=== PATIENT | male | born 1950 | race Caucasian/White ===

== ENCOUNTER 2016-12-15 09:19 | Inpatient (IN) | payer MEDICARE ==
--- NOTE | 2016-12-15 09:39 | ED Physician Documentation ---
PD HPI URI - Stated complaint Stated Complaint: COUGH/DIFFICULTY BREATHING - Chief complaint Chief Complaint: Resp - History obtained from History obtained from: Patient - History of Present Illness Timing - onset: How many days ago (5-6) Timing duration: Days Timing details: Gradual onset, Still present Associated symptoms: Chills, Nasal congestion, Productive cough, Dyspnea, Bilateral edema (chronic). No: Sore throat, Hemoptysis, Chest pain Contributing factors: COPD / asthma. No: Sick contact, Travel, Immunocompromised Improves by: Rest Worsened by: Activity, Position (worse lying flat) Similar symptoms before: Has not had sx before Recently seen: Clinic (seen clinic this morning and referred to ED due to low sats in 80s%.) Review of Systems Constitutional: reports: Fever, Chills Nose: reports: Rhinorrhea / runny nose, Congestion Throat: denies: Sore throat Cardiac: denies: Chest pain / pressure, Palpitations Respiratory: reports: Dyspnea, Cough, Wheezing GI: denies: Abdominal Pain, Nausea, Vomiting, Diarrhea Skin: denies: Rash, Lesions Musculoskeletal: reports: Extremity swelling (chronic in both legs) PD PAST MEDICAL HISTORY - Past Medical History Cardiovascular: None Respiratory: COPD (he had been on theophylline and inhaler in the past, and was smoker. No current treatments nor regular wheezing. ) Neuro: None Endocrine/Autoimmune: None - Present Medications Home Medications: Ambulatory Orders Medication Instructions Recorded Confirmed Aspirin 81 mg DAILY 12/15/16 12/15/16 Gabapentin 600 mg QID 12/15/16 12/15/16 Insulin Glargine [Lantus] 22 units QPM 12/15/16 12/15/16 Lisinopril 10 mg DAILY 12/15/16 12/15/16 Meloxicam 15 mg DAILY 12/15/16 12/15/16 Methadone 10 mg PO BID 12/15/16 12/15/16 metFORMIN [Glucophage] 1,000 mg BID 12/15/16 12/15/16 - Allergies Allergies/Adverse Reactions: Allergies Allergy/AdvReac Type Severity Reaction Status Date / Time No Known Drug Allergies Allergy Verified 12/15/16 10:36 PD ED PE NORMAL - Vitals Vital signs reviewed: Yes - General General: Alert and oriented X 3, Well developed/nourished - HEENT HEENT: Ears normal, Pharynx benign - Neck Neck: Supple, no meningeal sign, No adenopathy - Cardiac Cardiac: RRR (tachycardic), No murmur - Respiratory Respiratory: No respiratory distress. No: Clear bilaterally (wheezing diffusely , coarse sounds right base particularly. ) - Abdomen Abdomen: Soft, Non tender - Male Male : Deferred - Rectal Rectal: Deferred - Back Back: No CVA TTP - Derm Derm: Normal color, Warm and dry - Extremities Extremities: No deformity, No tenderness to palpate, No calf tenderness / cord, Other (3+ edema in both legs up to lower thighs. No calf tenderness. ) - Neuro Neuro: Alert and oriented X 3, No motor deficit, Normal speech - Psych Psych: Normal mood, Normal affect Results - Vitals Vitals: Vital Signs - 24 hr 12/15/16 12/15/16 12/15/16 09:22 09:40 10:33 Temperature 36.6 C Heart Rate 120 H 118 H 115 H Respiratory 28 H 22 Rate Blood Pressure 133/76 H 115/75 O2 Saturation 77 L 95 92 12/15/16 12/15/16 10:40 11:12 Temperature Heart Rate 112 H 113 H Respiratory 14 22 Rate Blood Pressure 125/61 O2 Saturation 96 Oxygen O2 Source nebulizer Oxygen Flow Rate 6 - Labs Labs: Laboratory Tests 12/15/16 12/15/16 12/15/16 09:40 09:40 09:40 WBC 17.3 H RBC 5.21 Hgb 14.7 Hct 45.5 MCV 87.3 MCH 28.2 MCHC 32.3 RDW 14.8 Plt Count 414 MPV 8.2 Neut # 13.4 H Lymph # 1.9 Tama # 1.7 H Eos # 0.1 Baso # 0.2 H Absolute Nucleated RBC 0.01 Band Neuts % (Manual) Not Reportable Nucleated RBCs 0.1 Differential Comment MANUAL=AUTO DIFF RBC Morph Micro Appear 1+ POLYCHROMASIA Sodium 133 L Potassium 3.9 Chloride 93 L Carbon Dioxide 31 Anion Gap 9.0 BUN 13 Creatinine 0.9 Estimated GFR (MDRD) 85 L Glucose 138 H Glycated Hemoglobin Estim Average Glucose Lactic Acid Calcium 8.6 Magnesium 1.8 Total Bilirubin 1.1 H AST 20 ALT 20 Alkaline Phosphatase 75 B-Natriuretic Peptide 51 Total Protein 7.1 Albumin 3.3 Globulin 3.8 Albumin/Globulin Ratio 0.9 L Lipase 21 L 12/15/16 12/15/16 12/15/16 09:40 09:40 10:15 WBC RBC Hgb Hct MCV MCH MCHC RDW Plt Count MPV Neut # Lymph # Tama # Eos # Baso # Absolute Nucleated RBC Band Neuts % (Manual) Nucleated RBCs Differential Comment RBC Morph Micro Appear Sodium Potassium Chloride Carbon Dioxide Anion Gap BUN Creatinine Estimated GFR (MDRD) Glucose Glycated Hemoglobin 6.7 H 6.9 H Estim Average Glucose 146 H 151 H Lactic Acid 1.2 Calcium Magnesium Total Bilirubin AST ALT Alkaline Phosphatase B-Natriuretic Peptide Total Protein Albumin Globulin Albumin/Globulin Ratio Lipase PD MEDICAL DECISION MAKING - ED course Complexity details: reviewed results, considered differential (seems likely pneumonia with wheezing, dyspnea, productive cough. Breathing improved with nebs. Sats above 92% on NC. Does not appear at risk of resp failure. Does not appear to be CHF. ), d/w patient, d/w software developer consultant (Dr. Moore, hospitalist) Departure - Departure Disposition: 66 [facility] DC/Xfer Clinical Impression: Hypoxemia Dyspnea Qualifiers: Dyspnea type: shortness of breath Qualified Code(s): R06.02 - Shortness of breath Pneumonia Qualifiers: Pneumonia type: due to unspecified organism Laterality: right Lung location: lower lobe of lung Qualified Code(s): J18.1 - Lobar pneumonia, unspecified organism Condition: Stable Discharge Date/Time: 12/15/16 12:27
[2016-12-15 10:08] LABS: BASOPHILS # (AUTO) 0.2 10^3/uL (0.0-0.1); EOSINOPHILS # (AUTO) 0.1 10^3/uL (0.0-0.7); EOSINOPHILS % (AUTO) 0.9 %; HCT - HEMATOCRIT 45.5 % (42.0-52.0); HGB - HEMOGLOBIN 14.7 g/dL (14.0-18.0); LYMPHOCYTES # (AUTO) 1.9 10^3/uL (1.5-3.5); LYMPHOCYTES % (AUTO) 10.9 %; MEAN CORPUSCULAR HEMOGLOBIN 28.2 pg (27.0-31.0); MEAN CORPUSCULAR HGB CONC 32.3 g/dL (32.0-36.0); MEAN CORPUSCULAR VOLUME 87.3 fL (80.0-94.0); MEAN PLATELET VOLUME 8.2 fL (7.4-11.4); MONOCYTES # (AUTO) 1.7 10^3/uL (0.0-1.0); MONOCYTES % (AUTO) 9.8 %; NEUTROPHILS # (AUTO) 13.4 10^3/uL (1.5-6.6); NEUTROPHILS % (AUTO) 77.4 %; NUCLEATED RED BLOOD CELLS AUTO 0.1 /100WBC; RED BLOOD COUNT 5.21 10^6/uL (4.70-6.10); RED CELL DISTRIBUTION WIDTH 14.8 % (12.0-15.0); UNCORRECTED WHITE BLOOD COUNT 17.3 x10^3/uL; WHITE BLOOD COUNT 17.3 x10^3/uL (4.8-10.8)
[2016-12-15 10:18] LABS: ALBUMIN/GLOBULIN RATIO 0.9 (1.0-2.2); BILIRUBIN,TOTAL 1.1 mg/dL (0.2-1.0); CALCIUM 8.6 mg/dL (8.5-10.3); CREATININE 0.9 mg/dL (0.6-1.2); MAGNESIUM 1.8 mg/dL (1.7-2.8); POTASSIUM 3.9 mmol/L (3.5-5.0); TOTAL PROTEIN 7.1 g/dL (6.7-8.2)
[2016-12-15] MEDS ORDERED: LEVALBUTEROL 1.25 MG INH STA ×2 (10:26→10:57)
[2016-12-15] MEDS ORDERED: LEVALBUTEROL 1.25 MG INH ONE ×2 (10:30→11:03)
[2016-12-15] MEDS ORDERED: SODIUM CHLORIDE INHALATION 3 ML NEB ONE ×2 (10:30→11:03)
[2016-12-15 10:38] LABS: NP AUTO DIFFERENTIAL? NO; NP MAN DIFFERENTIAL? YES
[2016-12-15 10:40] LABS: HEMOGLOBIN A1C 0.78 g/dL
--- NOTE | 2016-12-15 10:47 | XRAY Preliminary Report ---
Exam: XR Chest 1 View IMPRESSION: Lower lungs partially obscured by abdominal pannus. Mild increase in density lower lungs may in part be artifact from the overlying soft tissues, differe ntial also includes mild atelectasis and developing pneumonia. Otherwise within normal limits. [facility] SITE ID: [id number]
--- NOTE | 2016-12-15 10:50 | XRAY Report ---
EXAM: CHEST RADIOGRAPHY ONE VIEW EXAM DATE: 12/15/2016. CLINICAL HISTORY: Dyspnea. Cough. COMPARISON: None. TECHNIQUE: AP upright portable chest at 1026. FINDINGS: Lower lungs partially obscured by abdominal pannus. Lungs/Pleura: Normal vasculature. Mild hazy increase in density of the lung bases. Mid and upper lung s are clear. No pleural fluid or pneumothorax. Mediastinum: Cardiac and mediastinal contours normal for the technique and patient body habitus. Bones: No acute abnormality visible. IMPRESSION: Lower lungs partially obscured by abdominal pannus. Mild increase in density lower lungs may in part be artifact from the overlying soft tissues, differe ntial also includes mild atelectasis and developing pneumonia. Otherwise within normal limits. [facility] Referring Provider Line: [phone] SITE ID: [id number]
[2016-12-15] MEDS ORDERED: AZITHROMYCIN INJ 500 MG in SODIUM CHLORIDE 0.9% 250 ML IV STA (10:57)
[2016-12-15] MEDS ORDERED: cefTRIAXone 1 GM in SODIUM CHLORIDE 0.9% MINIBAG 100 ML IV STA (10:57)
[2016-12-15] MEDS ORDERED: SODIUM CHLORIDE 0.9% MINIBAG 100 ML IV ONE (11:00)
[2016-12-15] MEDS ORDERED: cefTRIAXone 1 GM VIAL ONE (11:00)
[2016-12-15] MEDS ORDERED: ONDANSETRON ODT 4 MG TABLET TL PRN (11:32)
[2016-12-15] MEDS ORDERED: ACETAMINOPHEN 325 MG TABLET PO PRN (11:32)
[2016-12-15] MEDS ORDERED: ONDANSETRON 4 MG/2 ML VIAL IVP PRN (11:32)
[2016-12-15] MEDS ORDERED: SODIUM CHLORIDE 0.9% 250 ML IV ONE (11:32)
[2016-12-15] MEDS ORDERED: SODIUM CHLORIDE FLUSH 0.9% 10 ML SYRINGE IVP PRN (11:32)
[2016-12-15] MEDS ORDERED: IPRATROPIUM 0.2 MG/ML NEB INH PRN (11:35)
[2016-12-15] MEDS ORDERED: SODIUM CHLORIDE INHALATION 3 ML NEB INH PRN (12:30)
[2016-12-15 12:31] LABS: HEMOGLOBIN A1C 0.81 g/dL
[2016-12-15] MEDS ORDERED: GABAPENTIN 300 MG CAPSULE PO SCH (13:00)
[2016-12-15] MEDS: INSULIN ASPART 300 UNIT/3 ML PEN SUBQ SCH ×3 (13:12→20:59)
[2016-12-15] MEDS: SODIUM CHLORIDE 0.9% 1,000 ML IV SCH ×2 (13:21→23:49)
[2016-12-15] MEDS: SODIUM CHLORIDE FLUSH 0.9% 10 ML SYRINGE IVP SCH ×2 (13:27→21:01)
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
[2016-12-15] MEDS: SACCHAROMYCES BOULARDII 250 MG CAPSULE PO SCH (17:32)
[2016-12-15] MEDS: METHADONE 5 MG TABLET PO SCH (20:58)
[2016-12-15] MEDS: GABAPENTIN 400 MG CAPSULE PO SCH (20:59)
[2016-12-15] MEDS: INSULIN GLARGINE 300 UNIT/3 ML PEN SUBQ SCH (21:00)
[2016-12-15] MEDS: guaiFENesin/CODEINE 5 ML UDC PO PRN (23:49)
[2016-12-16 06:17] LABS: CALCIUM 8.6 mg/dL (8.5-10.3); CREATININE 0.8 mg/dL (0.6-1.2); POTASSIUM 3.8 mmol/L (3.5-5.0)
[2016-12-16 06:18] LABS: BASOPHILS # (AUTO) 0.2 10^3/uL (0.0-0.1); BASOPHILS % (AUTO) 1.2 %; EOSINOPHILS # (AUTO) 0.4 10^3/uL (0.0-0.7); HCT - HEMATOCRIT 46.2 % (42.0-52.0); HGB - HEMOGLOBIN 14.4 g/dL (14.0-18.0); LYMPHOCYTES # (AUTO) 1.8 10^3/uL (1.5-3.5); LYMPHOCYTES % (AUTO) 13.4 %; MEAN CORPUSCULAR HGB CONC 31.2 g/dL (32.0-36.0); MEAN CORPUSCULAR VOLUME 89.5 fL (80.0-94.0); MEAN PLATELET VOLUME 7.9 fL (7.4-11.4); MONOCYTES # (AUTO) 1.4 10^3/uL (0.0-1.0); MONOCYTES % (AUTO) 10.2 %; NEUTROPHILS # (AUTO) 9.7 10^3/uL (1.5-6.6); NEUTROPHILS % (AUTO) 72.2 %; RED BLOOD COUNT 5.16 10^6/uL (4.70-6.10); RED CELL DISTRIBUTION WIDTH 14.5 % (12.0-15.0); UNCORRECTED WHITE BLOOD COUNT 13.4 x10^3/uL; WHITE BLOOD COUNT 13.4 x10^3/uL (4.8-10.8)
[2016-12-16] MEDS: cefTRIAXone 2 GM in SODIUM CHLORIDE 0.9% MINIBAG 100 ML IV SCH (08:26)
[2016-12-16] MEDS: POLYETHYLENE GLYCOL 3350 17 GM PACKET PO SCH (08:28)
[2016-12-16] MEDS: SACCHAROMYCES BOULARDII 250 MG CAPSULE PO SCH ×2 (08:28→16:11)
[2016-12-16] MEDS: ASPIRIN CHEW 81 MG TABLET PO SCH (08:28)
[2016-12-16] MEDS: GABAPENTIN 400 MG CAPSULE PO SCH ×2 (08:28→21:06)
[2016-12-16] MEDS: METHADONE 5 MG TABLET PO SCH ×2 (08:29→21:07)
[2016-12-16] MEDS: SODIUM CHLORIDE FLUSH 0.9% 10 ML SYRINGE IVP SCH ×3 (08:30→21:07)
[2016-12-16] MEDS: INSULIN ASPART 300 UNIT/3 ML PEN SUBQ SCH ×4 (08:30→20:54)
[2016-12-16] MEDS: LISINOPRIL 5 MG TABLET PO SCH (08:36)
[2016-12-16] MEDS: guaiFENesin/CODEINE 5 ML UDC PO PRN ×2 (11:34→22:11)
[2016-12-16] MEDS: DOCUSATE SODIUM 250 MG CAPSULE PO SCH (14:35)
[2016-12-16] MEDS: SENNA 8.6 MG TABLET PO SCH (14:36)
[2016-12-16] MEDS: HYDROcod/ACETAM 5/325 MG TABLET PO PRN ×2 (16:11→23:54)
[2016-12-16] MEDS: INSULIN GLARGINE 300 UNIT/3 ML PEN SUBQ SCH (21:07)
[2016-12-17] MEDS: SODIUM CHLORIDE FLUSH 0.9% 10 ML SYRINGE IVP SCH ×2 (07:28→07:44)
[2016-12-17] MEDS: INSULIN ASPART 300 UNIT/3 ML PEN SUBQ SCH ×4 (07:41→21:08)
[2016-12-17] MEDS: GABAPENTIN 400 MG CAPSULE PO SCH ×2 (07:42→20:13)
[2016-12-17] MEDS: METHADONE 5 MG TABLET PO SCH ×2 (07:42→20:13)
[2016-12-17] MEDS: LISINOPRIL 5 MG TABLET PO SCH (07:42)
[2016-12-17] MEDS: ASPIRIN CHEW 81 MG TABLET PO SCH (07:42)
[2016-12-17] MEDS: DOCUSATE SODIUM 250 MG CAPSULE PO SCH (07:43)
[2016-12-17] MEDS: cefTRIAXone 2 GM in SODIUM CHLORIDE 0.9% MINIBAG 100 ML IV SCH (07:43)
[2016-12-17] MEDS: SACCHAROMYCES BOULARDII 250 MG CAPSULE PO SCH ×2 (07:43→16:44)
[2016-12-17] MEDS: POLYETHYLENE GLYCOL 3350 17 GM PACKET PO SCH (07:43)
[2016-12-17] MEDS: SENNA 8.6 MG TABLET PO SCH (07:43)
[2016-12-17] MEDS: guaiFENesin/CODEINE 5 ML UDC PO PRN (07:45)
[2016-12-17] MEDS: NYSTATIN POWDER 15 GM TOP SCH ×2 (10:33→20:19)
[2016-12-17] MEDS: NYSTATIN CREAM 15 GM TUBE TOP SCH ×2 (10:33→20:19)
[2016-12-17] MEDS: LEVALBUTEROL 1.25 MG INH PRN (11:26)
--- NOTE | 2016-12-17 12:59 | PROVIDER PROGRESS NOTE ---
Subjective - Prog Note Date Prog Note Date: 12/17/16 Prog Note Time: 09:00 - Subjective Pt reports feeling: No change Subjective: Patient sitting up in bed, his face is johnathon and flushed, reports he just had to lay flat to reposition and this is usual, mild tachypnea but he denies overt SOB right now, WAS SOB when flat. He complains of persistent cough with thick yellow sputum, he produced a glob while I was at bedside. He is on 6l O2 and RN says unable to wean at this time. RN reports redness/ yeast under the bilateral axilla, redness under the pannus and she is placing inter-dry there. Current Medications - Current Medications Current Medications: Active Medications Acetaminophen (Tylenol) 650 mg PO Q4HR PRN PRN Reason: Pain 1 to 4 Acetaminophen/Hydrocodone Bitart ([place] 5/325) 1 tab PO Q4HR PRN PRN Reason: Pain 5 to 7 Last Admin: 12/16/16 23:54 Dose: 1 tab Aspirin ([place] Aspirin) 81 mg PO DAILY [facility] Last Admin: 12/17/16 07:42 Dose: 81 mg Docusate Sodium (Colace 250mg Capsule) 250 - 500 mg PO DAILY [facility] Last Admin: 12/17/16 07:43 Dose: 250 mg Gabapentin (Neurontin) 1,200 mg PO BID [facility] Last Admin: 12/17/16 07:42 Dose: 1,200 mg Guaifenesin/Codeine Phosphate (Robitussin Ac) 10 ml PO Q6HR PRN PRN Reason: Cough Last Admin: 12/17/16 07:45 Dose: 10 ml Ceftriaxone Sodium 2 gm/ (Sodium Chloride) 100 mls @ 200 mls/hr IV DAILY [facility] Last Admin: 12/17/16 07:43 Dose: 200 mls/hr Levofloxacin (Levaquin 750 Mg/150 Ml) 150 mls @ 100 mls/hr IV Q24H [facility] Last Admin: 12/16/16 11:31 Dose: 100 mls/hr Ibuprofen (Motrin) 400 mg PO Q4HR PRN PRN Reason: Pain 1 to 4 Insulin Aspart (Novolog) 1 - 9 unit SUBQ 0800,1200,1700,2100 NUVIA PRN Reason: Protocol Last Admin: 12/17/16 07:41 Dose: Not Given Insulin Glargine (Lantus Solostar) 22 unit SUBQ QPM [facility] Last Admin: 12/16/16 21:07 Dose: 22 unit Ipratropium [place] (Atrovent) 0.5 mg INH Q4HR PRN PRN Reason: Wheezing Last Admin: 12/17/16 11:25 Dose: 0.5 mg Levalbuterol HCl (Xopenex) 1.25 mg INH Q4HR PRN PRN Reason: Wheezing Last Admin: 12/17/16 11:26 Dose: 1.25 mg Lisinopril (Zestril) 10 mg PO DAILY [facility] Last Admin: 12/17/16 07:42 Dose: 10 mg Methadone HCl () 10 mg PO BID [facility] Last Admin: 12/17/16 07:42 Dose: 10 mg Nystatin (Mycostatin Cream) 1 applic TOP BID [facility] Last Admin: 12/17/16 10:33 Dose: 1 applic Nystatin (Nystop) 1 applic TOP BID [facility] Last Admin: 12/17/16 10:33 Dose: 1 applic Ondansetron HCl (Zofran Odt) 4 mg TL Q6HR PRN PRN Reason: Nausea / Vomiting Ondansetron HCl (Zofran Inj) 4 mg IVP Q6HR PRN PRN Reason: Nausea / Vomiting Polyethylene Glycol (Miralax) 17 gm PO DAILY [facility] Last Admin: 12/17/16 07:43 Dose: 17 gm Saccharomyces Boulardii (Florastor) 250 mg PO BIDWM [facility] Last Admin: 12/17/16 07:43 Dose: 250 mg Senna (Senokot) 8.6 - 17.2 mg PO DAILY [facility] Last Admin: 12/17/16 07:43 Dose: 8.6 mg Sodium Chloride (Normal Saline Flush 0.9%) 10 ml IVP PRN PRN PRN Reason: NEEDED PER PROVIDER ORDERS Sodium Chloride (Normal Saline Flush 0.9%) 10 ml IVP Q8HR [facility] Last Admin: 12/17/16 07:44 Dose: 10 ml Sodium Chloride (Normal Saline) 3 ml INH Q4HR PRN PRN Reason: XOPENEX NEB [place] Aspirin 81 mg DAILY 12/15/16 Gabapentin 600 mg QID 12/15/16 Insulin Glargine [Lantus] 22 units QPM 12/15/16 Lisinopril 10 mg DAILY 12/15/16 Meloxicam 15 mg DAILY 12/15/16 Methadone 10 mg PO BID 12/15/16 metFORMIN [Glucophage] 1,000 mg BID 12/15/16 Objective - Vital Signs/Intake & Output Reviewed Vital Signs: Yes Vital Signs: Vital Signs x48h Temp Pulse Pulse Resp BP Pulse Ox 12/17/16 11:25 99 18 12/17/16 09:26 37.4 C 98 18 129/71 94 Intake & Output: Intake & Output 12/14/16 12/15/16 12/16/16 12/17/16 23:59 23:59 23:59 23:59 Intake Total 1893 2705 300 Balance 1893 2705 300 - Objective General Appearance: positive: Alert, Mild distress Eyes Bilateral: positive: Normal inspection ENT: positive: No signs of dehydration Neck: positive: Other (thick) Respiratory: positive: Chest non-tender, Other (increased resp rate and effort, no accessory muscle use, holding his arms up on trapeze for comfort of breathing , breath sounds equal, diminished, no wheezing or rhonchi) Cardiovascular: positive: Regular rate & rhythm (distant heart sounds (likely from body habitus)). negative: Tachycardia Peripheral Pulses: 1+ Dorsalis pedis (R), 1+ Dorsalis pedis (L), 2+ Radial (R), 2+ Radial (L) Abdomen: positive: Non-tender (morbidly obese and his pannus clearly covers the groin and upper thighs. Hypoactive bowel sounds, soft.) Skin: positive: Warm, Dry, Other (Johnathon complexion and red in the face now. Bilateral axilla with yeast, under the abdominal pannus there is redness/yeast dermatitis, no open wounds or cellulitis.) Extremities: positive: Non-tender. negative: Full ROM (limited by body habitus) Neurologic/Psychiatric: positive: Oriented x3, Motor nml, Sensation nml, Mood/ affect nml - Lab Results Fish Bones: 12/16/16 05:47 12/16/16 05:47 Assessment/Plan - Problem List (1) CAP (community acquired pneumonia) Impression: Hx of 3+ weeks of persistent cough with increased sputum following a URI/head cold. Saw PCP in office, hypoxic to 80s and sent to ER. CXR with ?atelectasis vs infiltrate but with WBC 17k and hypoxia + tachycardia admitted and treated for CAP with empiric therapy. No significant improvement since admission in symptoms. Sputum cx with normal resp chevy and blood cx negative thus far. WBC down to 13 from 17 (neutrophil predominant). No evidence of heart failure note with BNP 51. Elevated white count and URI symptoms make it more liekly CAP than a PE. -Continue rocephin + levaquin -Add mucinex BID, may have robitussin prn -aDD Duonebs QID scheduled -Continue xopenex q4hr prn -Pulm toilet q4hr -O2 as neede dto keep sats >92%, wean as tolerated (2) COPD with exacerbation Impression: 60yr pack history, quit in 1995. No inhalers or oxygen at home. Has chronic daily cough that is productive at [employer], now with increased amount + SOB + hypoxia and tachypnea. Likely due to CAP. -Will not start nebs as he is not wheezy +recommend outpt PFTs once at baseline (3) Acute respiratory failure with hypoxia Impression: Significant SOB and hypoxia (initially to 70's on RA). Very symptomatic when flat or with exertion. Not much improvement yet. -As above -Wean O2 as tolerated +recommend sleep study once at baseline (4) T2DM (type 2 diabetes mellitus) Impression: Hx fo T2DM and A1c 6.9. On lantus + metformin at home and gabapentin for neuropathy. -Continue lantus 22units qHS (may need to be increased if started on steroids ) -SSI achs -Carb controlled diet Qualifiers: Diabetes mellitus complication status: with neurologic complications Diabetes mellitus complication detail: with unspecified neuropathy Diabetes mellitus custodial insulin use: with custodial use Qualified Code(s): E11.40 - Type 2 diabetes mellitus with diabetic neuropathy, unspecified; Z79.4 - detention (current) use of insulin (5) HTN (hypertension) Impression: Hx of HTN, on lisinopril at home. ACEI could be contributing to chronic cough as well. Currently normotensive. -Continue lisinopril -Monitor BP routinely and titrate meds as needed (6) Chronic pain syndrome Impression: Hx of chronic back pain and is on meloxicam and methadone at home. Patient reports pain at baseline. -Continue methadone 10mg BID and [place] 1tab q4prn for breakthrough pain -Sub motrin prn for meloxicam -Bowel regimen: colace, miralax and senna daily (7) Yeast dermatitis Impression: Yeast dermatitis in the bilateral axilla and abdominal pannus, nystatin powder and cream available to staff software engineer. Interdry per RN to the pannus. -assess for improvement -Monitor for 2ndary infection -Keep clean and DRY DISCHARGE PLANNING: Due to response thus far, assume 3-4 more days until able to discharge. Lives alone, daughter as support. May need home O2 if unable to wean.
[2016-12-17] MEDS: guaiFENesin 600 MG TABLET PO SCH ×2 (14:39→20:13)
[2016-12-17] MEDS: IBUPROFEN 400 MG TABLET PO PRN (14:39)
[2016-12-17] MEDS: HYDROcod/ACETAM 5/325 MG TABLET PO PRN ×2 (18:48→23:38)
[2016-12-17] MEDS: INSULIN GLARGINE 300 UNIT/3 ML PEN SUBQ SCH (21:08)
[2016-12-17 23:07] LABS: MYCOPLASMA PNEUMONIAE AB IGG 0.52 U/L (<=0.09); MYCOPLASMA PNEUMONIAE AB IGM 0.05 U/L (<=0.76)
[2016-12-18] MEDS: guaiFENesin/CODEINE 5 ML UDC PO PRN ×2 (05:54→19:22)
[2016-12-18] MEDS: SODIUM CHLORIDE FLUSH 0.9% 10 ML SYRINGE IVP SCH ×3 (05:56→07:59)
[2016-12-18] MEDS: INSULIN ASPART 300 UNIT/3 ML PEN SUBQ SCH ×4 (07:55→20:37)
[2016-12-18] MEDS: ASPIRIN CHEW 81 MG TABLET PO SCH (07:56)
[2016-12-18] MEDS: cefTRIAXone 2 GM in SODIUM CHLORIDE 0.9% MINIBAG 100 ML IV SCH (07:56)
[2016-12-18] MEDS: SENNA 8.6 MG TABLET PO SCH (07:56)
[2016-12-18] MEDS: SACCHAROMYCES BOULARDII 250 MG CAPSULE PO SCH ×2 (07:56→17:22)
[2016-12-18] MEDS: GABAPENTIN 400 MG CAPSULE PO SCH ×2 (07:57→20:32)
[2016-12-18] MEDS: METHADONE 5 MG TABLET PO SCH ×2 (07:57→20:32)
[2016-12-18] MEDS: DOCUSATE SODIUM 250 MG CAPSULE PO SCH (07:57)
[2016-12-18] MEDS: POLYETHYLENE GLYCOL 3350 17 GM PACKET PO SCH (07:57)
[2016-12-18] MEDS: LISINOPRIL 5 MG TABLET PO SCH (07:57)
[2016-12-18] MEDS: guaiFENesin 600 MG TABLET PO SCH ×2 (07:58→20:32)
[2016-12-18] MEDS: NYSTATIN CREAM 15 GM TUBE TOP SCH ×2 (07:59→20:38)
[2016-12-18] MEDS: NYSTATIN POWDER 15 GM TOP SCH ×2 (07:59→20:38)
[2016-12-18 08:00] LABS: BASOPHILS # (AUTO) 0.1 10^3/uL (0.0-0.1); BASOPHILS % (AUTO) 0.9 %; EOSINOPHILS # (AUTO) 0.4 10^3/uL (0.0-0.7); HCT - HEMATOCRIT 44.8 % (42.0-52.0); HGB - HEMOGLOBIN 13.9 g/dL (14.0-18.0); LYMPHOCYTES # (AUTO) 1.5 10^3/uL (1.5-3.5); LYMPHOCYTES % (AUTO) 11.7 %; MEAN CORPUSCULAR HEMOGLOBIN 27.7 pg (27.0-31.0); MEAN CORPUSCULAR HGB CONC 31.1 g/dL (32.0-36.0); MEAN CORPUSCULAR VOLUME 89.3 fL (80.0-94.0); MEAN PLATELET VOLUME 7.2 fL (7.4-11.4); MONOCYTES # (AUTO) 0.8 10^3/uL (0.0-1.0); MONOCYTES % (AUTO) 6.8 %; NEUTROPHILS # (AUTO) 9.7 10^3/uL (1.5-6.6); NEUTROPHILS % (AUTO) 77.6 %; RED BLOOD COUNT 5.02 10^6/uL (4.70-6.10); RED CELL DISTRIBUTION WIDTH 14.9 % (12.0-15.0); UNCORRECTED WHITE BLOOD COUNT 12.5 x10^3/uL; WHITE BLOOD COUNT 12.5 x10^3/uL (4.8-10.8)
[2016-12-18] MEDS: IBUPROFEN 400 MG TABLET PO PRN (08:00)
[2016-12-18 08:06] LABS: CALCIUM 8.7 mg/dL (8.5-10.3); CREATININE 0.8 mg/dL (0.6-1.2); POTASSIUM 4.9 mmol/L (3.5-5.0)
--- NOTE | 2016-12-18 12:03 | PROVIDER PROGRESS NOTE ---
Subjective - Prog Note Date Prog Note Date: 12/18/16 Prog Note Time: 12:01 - Subjective Pt reports feeling: Improved Subjective: Patient reports minimal (but some) improvement in his breathing. RN was able to wean to 5l this AM. + cough with sputum, slightly easier to cough up. No fever or chills, no muscle aches. Eating well, no abdominal pain. No skin irritation and axilla are much improved. Current Medications - Current Medications Current Medications: Active Medications Acetaminophen (Tylenol) 650 mg PO Q4HR PRN PRN Reason: Pain 1 to 4 Acetaminophen/Hydrocodone Bitart ([place] 5/325) 1 tab PO Q4HR PRN PRN Reason: Pain 5 to 7 Last Admin: 12/17/16 23:38 Dose: 1 tab Aspirin ([place] Aspirin) 81 mg PO DAILY [facility] Last Admin: 12/18/16 07:56 Dose: 81 mg Docusate Sodium (Colace 250mg Capsule) 250 - 500 mg PO DAILY [facility] Last Admin: 12/18/16 07:57 Dose: 250 mg Gabapentin (Neurontin) 1,200 mg PO BID [facility] Last Admin: 12/18/16 07:57 Dose: 1,200 mg Guaifenesin (Mucinex) 600 mg PO BID [facility] Last Admin: 12/18/16 07:58 Dose: 600 mg Guaifenesin/Codeine Phosphate (Robitussin Ac) 10 ml PO Q6HR PRN PRN Reason: Cough Last Admin: 12/18/16 05:54 Dose: 10 ml Ceftriaxone Sodium 2 gm/ (Sodium Chloride) 100 mls @ 200 mls/hr IV DAILY [facility] Last Admin: 12/18/16 07:56 Dose: 200 mls/hr Levofloxacin (Levaquin 750 Mg/150 Ml) 150 mls @ 100 mls/hr IV Q24H [facility] Last Admin: 12/17/16 13:05 Dose: 100 mls/hr Ibuprofen (Motrin) 400 mg PO Q4HR PRN PRN Reason: Pain 1 to 4 Last Admin: 12/18/16 08:00 Dose: 400 mg Insulin Aspart (Novolog) 1 - 9 unit SUBQ 0800,1200,1700,2100 NUVIA PRN Reason: Protocol Last Admin: 12/18/16 07:55 Dose: 1 unit Insulin Glargine (Lantus Solostar) 22 unit SUBQ QPM [facility] Last Admin: 12/17/16 21:08 Dose: 22 unit Ipratropium [place] (Atrovent) 0.5 mg INH Q4HR PRN PRN Reason: Wheezing Last Admin: 12/17/16 11:25 Dose: 0.5 mg Levalbuterol HCl (Xopenex) 1.25 mg INH Q4HR PRN PRN Reason: Wheezing Last Admin: 12/17/16 11:26 Dose: 1.25 mg Lisinopril (Zestril) 10 mg PO DAILY [facility] Last Admin: 12/18/16 07:57 Dose: 10 mg Methadone HCl () 10 mg PO BID [facility] Last Admin: 12/18/16 07:57 Dose: 10 mg Nystatin (Mycostatin Cream) 1 applic TOP BID [facility] Last Admin: 12/18/16 07:59 Dose: 1 applic Nystatin (Nystop) 1 applic TOP BID [facility] Last Admin: 12/18/16 07:59 Dose: 1 applic Ondansetron HCl (Zofran Odt) 4 mg TL Q6HR PRN PRN Reason: Nausea / Vomiting Ondansetron HCl (Zofran Inj) 4 mg IVP Q6HR PRN PRN Reason: Nausea / Vomiting Polyethylene Glycol (Miralax) 17 gm PO DAILY [facility] Last Admin: 12/18/16 07:57 Dose: 17 gm Saccharomyces Boulardii (Florastor) 250 mg PO BIDWM [facility] Last Admin: 12/18/16 07:56 Dose: 250 mg Senna (Senokot) 8.6 - 17.2 mg PO DAILY [facility] Last Admin: 12/18/16 07:56 Dose: 8.6 mg Sodium Chloride (Normal Saline Flush 0.9%) 10 ml IVP PRN PRN PRN Reason: NEEDED PER PROVIDER ORDERS Sodium Chloride (Normal Saline Flush 0.9%) 10 ml IVP Q8HR [facility] Last Admin: 12/18/16 07:59 Dose: 10 ml Sodium Chloride (Normal Saline) 3 ml INH Q4HR PRN PRN Reason: XOPENEX NEB [place] Aspirin 81 mg DAILY 12/15/16 Gabapentin 600 mg QID 12/15/16 Insulin Glargine [Lantus] 22 units QPM 12/15/16 Lisinopril 10 mg DAILY 12/15/16 Meloxicam 15 mg DAILY 12/15/16 Methadone 10 mg PO BID 12/15/16 metFORMIN [Glucophage] 1,000 mg BID 12/15/16 Objective - Vital Signs/Intake & Output Reviewed Vital Signs: Yes Vital Signs: Vital Signs x48h Temp Pulse Pulse Resp BP Pulse Ox 12/18/16 09:44 36.9 C 105 H 20 118/63 92 12/18/16 08:00 100 20 Intake & Output: Intake & Output 12/15/16 12/16/16 12/17/16 12/19/16 23:59 23:59 23:59 00:59 Intake Total 1892 2705 1950 450 Balance 1892 2705 1950 450 - Objective General Appearance: positive: No acute distress, Alert Eyes Bilateral: positive: Normal inspection ENT: positive: No signs of dehydration Respiratory: positive: Chest non-tender. negative: Breath sounds nml ( dimisnihed bilaterally, no wheezes or rhonchi, coarse with cough) Cardiovascular: positive: Regular rate & rhythm, Tachycardia Peripheral Pulses: 2+ Radial (R), 2+ Radial (L), 2+ Dorsalis pedis (R), 2+ Dorsalis pedis (L) Abdomen: positive: Non-tender, Other (obese with large pannuse, active bowel sounds) Back: positive: Nml inspection Skin: positive: Warm, Dry, Skin rash (yeast dermatitis to bilat axilla and abdominal pannus - axilla improved) Extremities: positive: Pedal edema (+2, NICOLE hose off). negative: Calf tenderness, Joint swelling Neurologic/Psychiatric: positive: Oriented x3, Motor nml (limited by obesity), Sensation nml, Mood/affect nml - Lab Results Fish Bones: 12/18/16 07:40 12/18/16 07:40 Other Labs: Lab Results x24hrs 12/18/16 12/18/16 Range/Units 07:40 07:40 WBC 12.5 H (4.8-10.8) x10^3/uL RBC 5.02 (4.70-6.10) 10^6/uL Hgb 13.9 L (14.0-18.0) g/dL Hct 44.8 (42.0-52.0) % MCV 89.3 (80.0-94.0) fL MCH 27.7 (27.0-31.0) pg MCHC 31.1 L (32.0-36.0) g/dL RDW 14.9 (12.0-15.0) % Plt Count 410 (130-450) 10^3/uL MPV 7.2 L (7.4-11.4) fL Neut # 9.7 H (1.5-6.6) 10^3/uL Lymph # 1.5 (1.5-3.5) 10^3/uL [place] # 0.8 (0.0-1.0) 10^3/uL Eos # 0.4 (0.0-0.7) 10^3/uL Baso # 0.1 (0.0-0.1) 10^3/uL Absolute Nucleated RBC 0.00 x10^3/uL Nucleated RBCs 0.0 /100WBC Sodium 136 (135-145) mmol/L Potassium 4.9 (3.5-5.0) mmol/L Chloride 96 L (101-111) mmol/L Carbon Dioxide 35 H (21-32) mmol/L Anion Gap 5.0 L (6-13) BUN 12 (6-20) mg/dL Creatinine 0.8 (0.6-1.2) mg/dL Estimated GFR (MDRD) 97 (>89) Glucose 142 H (70-100) mg/dL Calcium 8.7 (8.5-10.3) mg/dL Assessment/Plan - Problem List (1) CAP (community acquired pneumonia) Impression: Hx of 3+ weeks of persistent cough with increased sputum following a URI/head cold. Saw PCP in office, hypoxic to 80s and sent to ER. CXR with ?atelectasis vs infiltrate but with WBC 17k and hypoxia + tachycardia admitted and treated for CAP with empiric therapy. Symptoms slow to respond but slightly better by pt report. Sputum cx with normal resp chevy and blood cx negative thus far. WBC down to 12.5 from 17 (neutrophil predominant). No evidence of heart failure note with BNP 51. Elevated white count and URI symptoms make it more likely CAP than a PE. -CXR & procalcitonin in AM, -Continue rocephin + levaquin -Mucinex BID, may have robitussin prn -Duonebs QID scheduled -Continue xopenex q4hr prn -Pulm toilet q4hr -O2 as neede dto keep sats >92%, wean as tolerated (2) COPD with exacerbation Impression: 60yr pack history, quit in 1995. No inhalers or oxygen at home. Has chronic daily cough that is productive at baseline, now with increased amount + SOB + hypoxia and tachypnea. Likely due to CAP, management as above. +could likely benefit from pulm rehab +recommend outpt PFTs once at baseline (3) Acute respiratory failure with hypoxia Impression: Significant SOB and hypoxia (initially to 70's on RA), due to CAP. Very symptomatic when flat or with exertion. Morbid obesity could contribute to PM hypoxia. Finally starting to see some improvement, able to wean to 5l NC today. ----> back to 6l T 0945. -Wean O2 as tolerated +recommend sleep study once at baseline (4) T2DM (type 2 diabetes mellitus) Impression: Hx fo T2DM and A1c 6.9. On lantus + metformin at home and gabapentin for neuropathy. No associated nephropathy or vision problems. 24hr BG review: 149, 134, 146, 150, 134 -Continue lantus 22units qHS (may need to be increased if started on steroids ) -SSI achs -Carb controlled diet (5) HTN (hypertension) Impression: Hx of HTN, on lisinopril at home. ACEI could be contributing to chronic cough as well. Currently normotensive. -Continue lisinopril -Monitor BP routinely and titrate meds as needed (6) Chronic pain syndrome Impression: Hx of chronic back pain and is on meloxicam and methadone at home. Patient reports pain at baseline. Used norco x2 12/17. -Continue methadone 10mg BID and [place] 1tab q4prn for breakthrough pain -Sub motrin prn for meloxicam -Bowel regimen: colace, miralax and senna daily (last BM 12/17) (7) Yeast dermatitis Impression: Yeast dermatitis in the bilateral axilla and abdominal pannus, nystatin powder and cream available prn to staffing clerk. Interdry per RN to the pannus. Axilla improved. -assess for improvement -Monitor for 2ndary infection -Keep clean and DRY DISCHARGE PLANNING: Due to response thus far, assume 3 more days until able to discharge. May need home O2 and nebs. Lives alone, daughter as support. (4) T2DM (type 2 diabetes mellitus) Qualifiers: Diabetes mellitus complication status: with neurologic complications Diabetes mellitus complication detail: with unspecified neuropathy Diabetes mellitus fdc insulin use: with equipment operator intermodal yard use Qualified Code(s): E11.40 - Type 2 diabetes mellitus with diabetic neuropathy, unspecified; Z79.4 - care home (current) use of insulin
[2016-12-18] MEDS: HYDROcod/ACETAM 5/325 MG TABLET PO PRN (19:22)
--- NOTE | 2016-12-18 19:24 | PROVIDER PROGRESS NOTE ---
Subjective - Prog Note Date Prog Note Date: 12/16/16 Prog Note Time: 08:00 - Subjective Subjective: he feels better but still sob and has dry cough. on nystatin for his yeast under his panus. Objective - Vital Signs/Intake & Output Vital Signs: Vital Signs x48h Temp Pulse Resp BP Pulse Ox 12/18/16 16:08 36.8 C 98 20 123/84 H 98 Intake & Output: Intake & Output 12/15/16 12/16/16 12/17/16 12/19/16 23:59 23:59 23:59 00:59 Intake Total 1893 2705 1950 1236 Balance 1893 2705 1950 1236 - Objective General Appearance: positive: No acute distress, Alert Eyes Bilateral: positive: PERRL ENT: positive: Other (nasal voice) Neck: positive: No JVD Respiratory: positive: Chest non-tender (barrell chest), Wheezes. negative: Rales, Rhonchi Cardiovascular: positive: Regular rate & rhythm, No murmur. negative: Gallop/S4 , Friction rub Abdomen: positive: Non-tender Skin: positive: Other (ketty pretty bad in panus) Extremities: positive: Pedal edema Neurologic/Psychiatric: positive: Oriented x3, CN's nml (2-12). negative: Motor nml (can't get up and walk) - Lab Results Fish Bones: 12/18/16 07:40 12/18/16 07:40 Other Labs: Lab Results x24hrs 12/18/16 12/18/16 Range/Units 07:40 07:40 WBC 12.5 H (4.8-10.8) x10^3/uL RBC 5.02 (4.70-6.10) 10^6/uL Hgb 13.9 L (14.0-18.0) g/dL Hct 44.8 (42.0-52.0) % MCV 89.3 (80.0-94.0) fL MCH 27.7 (27.0-31.0) pg MCHC 31.1 L (32.0-36.0) g/dL RDW 14.9 (12.0-15.0) % Plt Count 410 (130-450) 10^3/uL MPV 7.2 L (7.4-11.4) fL Neut # 9.7 H (1.5-6.6) 10^3/uL Lymph # 1.5 (1.5-3.5) 10^3/uL [place] # 0.8 (0.0-1.0) 10^3/uL Eos # 0.4 (0.0-0.7) 10^3/uL Baso # 0.1 (0.0-0.1) 10^3/uL Absolute Nucleated RBC 0.00 x10^3/uL Nucleated RBCs 0.0 /100WBC Sodium 136 (135-145) mmol/L Potassium 4.9 (3.5-5.0) mmol/L Chloride 96 L (101-111) mmol/L Carbon Dioxide 35 H (21-32) mmol/L Anion Gap 5.0 L (6-13) BUN 12 (6-20) mg/dL Creatinine 0.8 (0.6-1.2) mg/dL Estimated GFR (MDRD) 97 (>89) Glucose 142 H (70-100) mg/dL Calcium 8.7 (8.5-10.3) mg/dL Assessment/Plan - Problem List (1) Pneumonia Impression: Day #2 abx. Qualifiers: Pneumonia type: due to unspecified organism Laterality: right Lung location: lower lobe of lung Qualified Code(s): J18.1 - Lobar pneumonia, unspecified organism (2) COPD with exacerbation Impression: nebs, hypoxia stable, lung exam stable. n
[2016-12-18] MEDS: INSULIN GLARGINE 300 UNIT/3 ML PEN SUBQ SCH (20:38)
[2016-12-19] MEDS: HYDROcod/ACETAM 5/325 MG TABLET PO PRN ×2 (01:03→09:41)
[2016-12-19] MEDS: SODIUM CHLORIDE FLUSH 0.9% 10 ML SYRINGE IVP SCH ×4 (01:04→21:04)
[2016-12-19] MEDS: guaiFENesin/CODEINE 5 ML UDC PO PRN ×2 (02:08→21:04)
[2016-12-19] MEDS: POLYETHYLENE GLYCOL 3350 17 GM PACKET PO SCH (08:10)
[2016-12-19] MEDS: SACCHAROMYCES BOULARDII 250 MG CAPSULE PO SCH ×2 (08:11→17:28)
[2016-12-19] MEDS: GABAPENTIN 400 MG CAPSULE PO SCH ×2 (08:11→21:03)
[2016-12-19] MEDS: LISINOPRIL 5 MG TABLET PO SCH (08:11)
[2016-12-19] MEDS: guaiFENesin 600 MG TABLET PO SCH ×2 (08:12→21:04)
[2016-12-19] MEDS: SENNA 8.6 MG TABLET PO SCH (08:12)
[2016-12-19] MEDS: METHADONE 5 MG TABLET PO SCH ×2 (08:12→21:03)
[2016-12-19] MEDS: DOCUSATE SODIUM 250 MG CAPSULE PO SCH (08:12)
[2016-12-19] MEDS: ASPIRIN CHEW 81 MG TABLET PO SCH (08:12)
[2016-12-19] MEDS: cefTRIAXone 2 GM in SODIUM CHLORIDE 0.9% MINIBAG 100 ML IV SCH (08:13)
[2016-12-19] MEDS: INSULIN ASPART 300 UNIT/3 ML PEN SUBQ SCH ×4 (09:30→21:02)
[2016-12-19] MEDS: NYSTATIN POWDER 15 GM TOP SCH ×2 (10:43→21:04)
[2016-12-19] MEDS: NYSTATIN CREAM 15 GM TUBE TOP SCH ×2 (10:44→21:04)
--- NOTE | 2016-12-19 11:22 | XRAY Report ---
TWO-VIEW CHEST: 12/19/2016 CLINICAL INDICATION: Pneumonia. FINDINGS: Frontal and lateral views of the chest demonstrate a normal cardiac silhouette. Bibasilar infiltrates are present. No effusion or pneumothorax is seen. IMPRESSION: BIBASILAR INFILTRATES. JOB #: [id number] EXT JOB #:[id number]
--- NOTE | 2016-12-19 17:36 | PROVIDER PROGRESS NOTE ---
Subjective - Prog Note Date Prog Note Date: 12/19/16 Prog Note Time: 09:00 - Subjective Pt reports feeling: Improved Subjective: Slow gradual improvement, now walking back and forth to bathroom, RN states he get up for side of bed for meals, to x-ray in WC. He seems motivated. SOB with exertion. + cough with sputum. No fever chills, eating well, yeast improved, no pain. Current Medications - Current Medications Current Medications: Active Medications Acetaminophen (Tylenol) 650 mg PO Q4HR PRN PRN Reason: Pain 1 to 4 Last Admin: 12/18/16 17:24 Dose: 650 mg Acetaminophen/Hydrocodone Bitart ([place] 5/325) 1 tab PO Q4HR PRN PRN Reason: Pain 5 to 7 Last Admin: 12/19/16 09:41 Dose: 1 tab Aspirin ([place] Aspirin) 81 mg PO DAILY [facility] Last Admin: 12/19/16 08:12 Dose: 81 mg Docusate Sodium (Colace 250mg Capsule) 250 - 500 mg PO DAILY [facility] Last Admin: 12/19/16 08:12 Dose: 250 mg Gabapentin (Neurontin) 1,200 mg PO BID [facility] Last Admin: 12/19/16 08:11 Dose: 1,200 mg Guaifenesin (Mucinex) 600 mg PO BID [facility] Last Admin: 12/19/16 08:12 Dose: 600 mg Guaifenesin/Codeine Phosphate (Robitussin Ac) 10 ml PO Q6HR PRN PRN Reason: Cough Last Admin: 12/19/16 02:08 Dose: 10 ml Ceftriaxone Sodium 2 gm/ (Sodium Chloride) 100 mls @ 200 mls/hr IV DAILY [facility] Last Admin: 12/19/16 08:13 Dose: 200 mls/hr Levofloxacin (Levaquin 750 Mg/150 Ml) 150 mls @ 100 mls/hr IV Q24H [facility] Last Admin: 12/19/16 12:06 Dose: 100 mls/hr Ibuprofen (Motrin) 400 mg PO Q4HR PRN PRN Reason: Pain 1 to 4 Last Admin: 12/18/16 08:00 Dose: 400 mg Insulin Aspart (Novolog) 1 - 9 unit SUBQ 0800,1200,1700,2100 NUVIA PRN Reason: Protocol Last Admin: 12/19/16 17:26 Dose: Not Given Insulin Glargine (Lantus Solostar) 22 unit SUBQ QPM [facility] Last Admin: 12/18/16 20:38 Dose: 22 unit Ipratropium [place] (Atrovent) 0.5 mg INH Q4HR PRN PRN Reason: Wheezing Last Admin: 12/17/16 11:25 Dose: 0.5 mg Levalbuterol HCl (Xopenex) 1.25 mg INH Q4HR PRN PRN Reason: Wheezing Last Admin: 12/17/16 11:26 Dose: 1.25 mg Lisinopril (Zestril) 10 mg PO DAILY [facility] Last Admin: 12/19/16 08:11 Dose: 10 mg Methadone HCl () 10 mg PO BID [facility] Last Admin: 12/19/16 08:12 Dose: 10 mg Nystatin (Mycostatin Cream) 1 applic TOP BID [facility] Last Admin: 12/19/16 10:44 Dose: 1 applic Nystatin (Nystop) 1 applic TOP BID [facility] Last Admin: 12/19/16 10:43 Dose: 1 applic Ondansetron HCl (Zofran Odt) 4 mg TL Q6HR PRN PRN Reason: Nausea / Vomiting Ondansetron HCl (Zofran Inj) 4 mg IVP Q6HR PRN PRN Reason: Nausea / Vomiting Polyethylene Glycol (Miralax) 17 gm PO DAILY [facility] Last Admin: 12/19/16 08:10 Dose: 17 gm Saccharomyces Boulardii (Florastor) 250 mg PO BIDWM [facility] Last Admin: 12/19/16 17:28 Dose: 250 mg Senna (Senokot) 8.6 - 17.2 mg PO DAILY [facility] Last Admin: 12/19/16 08:12 Dose: 8.6 mg Sodium Chloride (Normal Saline Flush 0.9%) 10 ml IVP PRN PRN PRN Reason: NEEDED PER PROVIDER ORDERS Sodium Chloride (Normal Saline Flush 0.9%) 10 ml IVP Q8HR [facility] Last Admin: 12/19/16 13:42 Dose: Not Given Sodium Chloride (Normal Saline) 3 ml INH Q4HR PRN PRN Reason: XOPENEX NEB [place] Aspirin 81 mg DAILY 12/15/16 Gabapentin 600 mg QID 12/15/16 Insulin Glargine [Lantus] 22 units QPM 12/15/16 Lisinopril 10 mg DAILY 12/15/16 Meloxicam 15 mg DAILY 12/15/16 Methadone 10 mg PO BID 12/15/16 metFORMIN [Glucophage] 1,000 mg BID 12/15/16 Objective - Vital Signs/Intake & Output Reviewed Vital Signs: Yes Vital Signs: Vital Signs x48h Temp Pulse Pulse Resp BP Pulse Ox 12/19/16 16:25 36.2 C L 95 18 137/80 H 94 12/19/16 10:00 98 24 Intake & Output: Intake & Output 12/16/16 12/17/16 12/18/16 12/19/16 22:59 22:59 23:59 23:59 Intake Total 2874 Output Total 700 Balance 2174 - Objective General Appearance: positive: No acute distress, Alert Eyes Bilateral: positive: PERRL ENT: positive: Pharynx nml Neck: positive: No JVD Respiratory: positive: Chest non-tender, No respiratory distress Cardiovascular: positive: Regular rate & rhythm Peripheral Pulses: 1+ Dorsalis pedis (R), 1+ Dorsalis pedis (L), 2+ Radial (R), 2+ Radial (L) Abdomen: positive: Non-tender, Nml bowel sounds, No distention Back: positive: Nml inspection Skin: positive: Warm, Dry, Skin rash (yeast dermatitis in the axilla improved.) , Other (face less red) Extremities: positive: Non-tender, Full ROM, Nml appearance, Pedal edema (+2). negative: Calf tenderness, Joint swelling Neurologic/Psychiatric: positive: Oriented x3, Motor nml, Sensation nml, Mood/ affect nml - Lab Results Fish Bones: 12/18/16 07:40 12/18/16 07:40 Assessment/Plan - Problem List (1) CAP (community acquired pneumonia) Impression: Hx of 3+ weeks of persistent cough with increased sputum following a URI/head cold. Saw PCP in office, hypoxic to 80s and sent to ER. CXR with ?atelectasis vs infiltrate but with WBC 17k and hypoxia + tachycardia admitted and treated for CAP with empiric therapy. Symptoms slow to respond but slightly better by pt report. Sputum cx with normal resp chevy and blood cx negative thus far. WBC down to 12.5 from 17 (neutrophil predominant). No evidence of heart failure note with BNP 51. Elevated white count and URI symptoms make it more likely CAP than a PE. SLOWLY improving, down to 5l today. Ambulating more. CXR wiht bilateral infiltrates 12/19. -Continue rocephin + levaquin -Mucinex BID, may have robitussin prn -Duonebs QID scheduled -Continue xopenex q4hr prn -Pulm toilet q4hr -O2 as needed to keep sats >92%, wean as tolerated -Encourage activity to prevent deconditioning (2) COPD with exacerbation Impression: 60yr pack history, quit in 1995. No inhalers or oxygen at home. Has chronic daily cough that is productive at baseline, now with increased amount + SOB + hypoxia and tachypnea. Likely due to CAP, management as above. +could likely benefit from pulm rehab +recommend outpt PFTs once at baseline (3) Acute respiratory failure with hypoxia Impression: Significant SOB and hypoxia (initially to 70's on RA), due to CAP. Very symptomatic when flat or with exertion. Morbid obesity could contribute to PM hypoxia. Finally starting to see some improvement, able to wean to 5l NC today. ----> back to 6l T 0945 --> back to 5l at 1400. 12/19 on 5l all day. -Wean O2 as tolerated +recommend sleep study once at baseline (4) T2DM (type 2 diabetes mellitus) Impression: Hx fo T2DM and A1c 6.9. On lantus + metformin at home and gabapentin for neuropathy. No associated nephropathy or vision problems. 24hr BG review: 149, 134, 146, 150, 134 -Continue lantus 22units qHS (may need to be increased if started on steroids ) -SSI achs -No concentrated sweets (5) HTN (hypertension) Impression: Hx of HTN, on lisinopril at home. ACEI could be contributing to chronic cough as well. Currently normotensive. -Continue lisinopril -Monitor BP routinely and titrate meds as needed (6) Chronic pain syndrome Impression: Hx of chronic back pain and is on meloxicam and methadone at home. Patient reports pain at baseline. Used norco x2 12/17. -Continue methadone 10mg BID and [place] 1tab q4prn for breakthrough pain -Sub motrin prn for meloxicam -Bowel regimen: colace, miralax and senna daily (last BM 12/17) (7) Yeast dermatitis Impression: Yeast dermatitis in the bilateral axilla and abdominal pannus, nystatin powder and cream available prn to staff radiation therapist. Interdry per RN to the pannus. Axilla improved. -assess for improvement -Monitor for 2ndary infection -Keep clean and DRY DISCHARGE PLANNING: Due to response thus far, assume 3 more days until able to discharge. May need home O2 and nebs. Lives alone, daughter as support.
[2016-12-19] MEDS: INSULIN GLARGINE 300 UNIT/3 ML PEN SUBQ SCH (21:02)
[2016-12-19] MEDS: IBUPROFEN 400 MG TABLET PO PRN (21:04)
[2016-12-20] MEDS: HYDROcod/ACETAM 5/325 MG TABLET PO PRN ×3 (00:45→12:56)
[2016-12-20] MEDS: SODIUM CHLORIDE FLUSH 0.9% 10 ML SYRINGE IVP SCH (06:49)
[2016-12-20 08:50] VITALS: BP 127/68
[2016-12-20] MEDS: cefTRIAXone 2 GM in SODIUM CHLORIDE 0.9% MINIBAG 100 ML IV SCH (08:58)
[2016-12-20] MEDS: METHADONE 5 MG TABLET PO SCH (08:59)
[2016-12-20] MEDS: DOCUSATE SODIUM 250 MG CAPSULE PO SCH (09:00)
[2016-12-20] MEDS: guaiFENesin 600 MG TABLET PO SCH (09:00)
[2016-12-20] MEDS: GABAPENTIN 400 MG CAPSULE PO SCH (09:00)
[2016-12-20] MEDS: LISINOPRIL 5 MG TABLET PO SCH (09:00)
[2016-12-20] MEDS: SACCHAROMYCES BOULARDII 250 MG CAPSULE PO SCH (09:00)
[2016-12-20] MEDS: INSULIN ASPART 300 UNIT/3 ML PEN SUBQ SCH ×2 (09:00→12:52)
[2016-12-20] MEDS: ASPIRIN CHEW 81 MG TABLET PO SCH (09:00)
[2016-12-20] MEDS: POLYETHYLENE GLYCOL 3350 17 GM PACKET PO SCH (09:01)
[2016-12-20] MEDS: NYSTATIN CREAM 15 GM TUBE TOP SCH (09:01)
[2016-12-20] MEDS: NYSTATIN POWDER 15 GM TOP SCH (09:01)
[2016-12-20] MEDS: SENNA 8.6 MG TABLET PO SCH (09:01)
[2016-12-20] MEDS: LEVALBUTEROL 1.25 MG INH PRN (09:33)
--- NOTE | 2016-12-20 10:03 | Discharge Plan ---
Discharge Plan Disposition: Home, Self Care Condition: Stable Prescriptions: HYDROcod/ACETAM 5/325 [[place] 5/325] 1 tab PO Q4HR PRN #30 tablet PRN Reason: Pain 5 to 7 Levalbuterol Tartrate [Xopenex Hfa] 15 gm IH Q4HR PRN #1 hfa.aer.ad PRN Reason: Shortness Of Air/Wheezing Fluticasone/Salmeterol [Advair 250-50 Diskus] 1 each IH BID #1 blst.w.dev Levofloxacin [Levaquin] 750 mg PO DAILY #1 tablet Albuterol Sulfate [Proair Hfa Inhaler] 1 - 2 puffs INH Q4H PRN #1 inhaler PRN Reason: Shortness Of Air/Wheezing Diet: Diabetic Activity Restrictions: Activity as Tolerated Weight Bearing: Full Weight Additional Instructions or Follow Up instructions: You were admitted to the hospital for pneumonia which caused exacerbation of COPD. You have improved with oxygen, IV antibiotics and nebulized breathing treatments. You will continue home oxygen You will continue antibiotic :levaquin (only 1 more day left to complete 1 week) You will use inhalers: advair (inhaled steroid with long acting bronchodilater ) and albuterol or xopenex (depending on affordability) You will continue your other previous home meds Additional Rx for norco as needed for pain given Try to clump activities to conserve energy. If short of breath, sit and rest till you recover Try to be active each day and slwoly increase activity as your breathing allows. You will need to follow-up with Dr Fregoso in 3-5days to ensure that you continue to imporve and can recheck oxygen levels. No Smoking: If you smoke, Please STOP! Call for help. Follow-up with: Ez Fregoso MD [Primary Care Provider] - (in 3-5 days for HOSPITAL FOLLOW-UP appt. )
[2016-12-20] MEDS ORDERED: levoFLOXacin 250 MG TABLET PO SCH (12:00)
--- NOTE | 2016-12-21 16:25 | DISCHARGE SUMMARY ---
DATE OF ADMISSION: 12/15/2016 DATE OF DISCHARGE: 12/20/2016 DISCHARGING PROVIDER: DENNIS More. PRIMARY CARE PROVIDER: Ez Fregoso MD. DISCHARGE DIAGNOSES: 1. Community acquired pneumonia. 2. Chronic obstructive pulmonary disease with exacerbation. 3. Acute hypoxic respiratory failure. 4. Type 2 diabetes mellitus, on insulin and long-term without complication. 5. Hypertension. 6. Chronic pain syndrome. 7. Yeast dermatitis. DISCHARGE MEDICATIONS: Home medications to continue: 1. Methadone 10 mg by mouth twice a day. 2. Lisinopril 10 mg by mouth daily. 3. Aspirin 81 mg by mouth daily. 4. Gabapentin 600 mg by mouth 4 times a day. 5. Lantus 22 units subcutaneously at bedtime. 6. Metformin 1000 mg by mouth twice a day. 7. Meloxicam 15 mg by mouth daily. NEW MEDICATIONS: 1. Xopenex inhaler puff 1-2 puffs inhaled every 4 hours as needed for shortness of breath or wheezing . 2. Advair 250/50 Diskus 1 inhaled twice a day. 3. [place] 5/325 mg. 1 tab by mouth every 4 hours as needed for pain. 4. Levaquin 750 mg by mouth daily x1 more day. HOSPITAL COURSE: The patient is a pleasant 66-year-old male who is morbidly obese, has a hi story of smoking and COPD but is not currently on any medications for that as outpatient. He presents to the emergency room with over 3 weeks of cough, cold, congestion. He saw his primary care provider was hypoxic in the office to 80% and he was brought to the emergency room, where he was found to hav e a chest x-ray with an infiltrate and white blood cell count [id number] with hypoxia and associated tachy cardia and he was admitted for community-acquired pneumonia. He was started empirically on Rocephin a nd Levaquin, Mucinex was given twice a day for thick secretions, scheduled DuoNeb 4 times a day. He w as given Xopenex as needed for shortness of breath as he responded to it better than albuterol. The p atient's white blood cell count improved. It was neutrophil predominant leukocytosis. He had no evide nce of heart failure with BNP of 51. He continued to improve very slowly. His acute hypoxic respirato ry failure with even slower to improve, began on 6 liters nasal cannula and by the time of discharge was able to maintain O2 saturation greater than 92% on 4 liters at rest and 5 liters with exertion. T he patient was ambulatory in his room and tolerated this well. His community-acquired pneumonia, like ly caused a COPD exacerbation and he received breathing treatments as needed, which helped with this. He also received 1 dose of azithromycin while in the emergency department, but this was not continue d as an inpatient. As for his persistent hypoxia home oxygen was arranged for the patient and this wa s arranged by Respiratory Therapy. Will recommend pulmonary rehabilitation for the patient after disc harge if he continues to have shortness of breath on exertion. No PFTs were available to us, if not d one prior would recommend as an outpatient once he is at his baseline. The patient has history of albertina betes with A1c of 6.9 on Lantus and metformin at home with gabapentin for neuropathy. He had no assoc iated nephropathy or vision problems reported. Blood glucose remained well controlled on Lantus 22 un its at bedtime and low dose sliding scale insulin with no concentrated sweets for meals. He has a his tory of hypertension on lisinopril at home. His JOYCELYN inhibitor could be contributing to his chronic co ugh, but it is most likely from his COPD and therefore no medication changes were made. His blood pre ssure remained normotensive while in the hospital. The patient has chronic back pain and is on meloxi cam and methadone at home. The pain was at baseline, worsened by the coughing and hospital bed. [place] was provided in the hospital and Motrin was given in place of his meloxicam. He was placed on a diana l regimen and his last bowel movement was the day of discharge. The patient on arrival was noted to h ave yeast dermatitis in his bilateral axilla and under his abdominal pannus. Nystatin powder and crea m was applied and he had improvement of his dermatitis. The patient educated on the need to keep the areas clean and dry, to prevent infection. The patient was discharged home in stable condition, his d aughter transporting him there. PHYSICAL EXAMINATION: VITAL SIGNS AT DISCHARGE were 36.3 degrees Celsius, heart rate 100 beats per mi nute, blood pressure 127/68, respiratory rate 16 breaths/minute, O2 saturation 91% on 3 liters nasal cannula. HOSPITAL FOLLOWUP: The patient is to followup with his primary care provider, Ez Fregoso, in the next 3-5 days to ensure that he has resolution of his pneumonia and to continue to check his oxygen level s so that he may potentially be weaned from the oxygen and not need it for life. Outpatient PFTs, out patient pulmonary rehabilitation. Time spent on discharge is greater than 30 minutes in patient education of his new medications, coord ination of care with setting up home oxygen. JOB #: [id number] EXT JOB #:[id number]
== END 2016-12-20 13:25 | disposition home or self-care (01) | DRG 193 ==
LOC: ED 09:19 → MS 11:32
PROVIDERS: ADMIT Specialist; ATTEND Nurse Practitioner Acute Care
DX: J18.1 Lobar pneumonia, unspecified organism (principal); R09.02 Hypoxemia; J44.9 Chronic obstructive pulmonary disease, unspecified; J96.01 Acute respiratory failure with hypoxia; J44.1 Chronic obstructive pulmonary disease with (acute) exacerbation; Z68.43 Body mass index [BMI] 50.0-59.9, adult; E11.42 Type 2 diabetes mellitus with diabetic polyneuropathy; I10 Essential (primary) hypertension; G89.4 Chronic pain syndrome; B37.2 Candidiasis of skin and nail; E66.01 Morbid (severe) obesity due to excess calories; Z66 Do not resuscitate; Z96.89 Presence of other specified functional implants; Z79.4 Long term (current) use of insulin; Z79.891 Long term (current) use of opiate analgesic; Z79.82 Long term (current) use of aspirin; Z87.891 Personal history of nicotine dependence
CPT/HCPCS: 36415; 71010; 71020; 80048; 80053; 83036; 83605; 83690; 83735; 83880; 85025; 86738; 87040; 87070; 87205; 87275; 87276; 93005; 93010; 94640; 94761; 96365; 96367; 99284

== ENCOUNTER 2023-11-13 07:37 | Outpatient (CLI) | payer MEDICARE | END 2023-11-13 23:59 | disposition critical access hospital (66) | LOC: EMS 07:37 | DX: S51.012A Laceration without foreign body of left elbow, initial encounter (principal); W06.XXXA Fall from bed, initial encounter; Y92.013 Bedroom of single-family (private) house as the place of occurrence of the external cause; E11.9 Type 2 diabetes mellitus without complications; Z79.4 Long term (current) use of insulin; R68.83 Chills (without fever); R60.0 Localized edema; R53.1 Weakness; R05.9 Cough, unspecified | CPT/HCPCS: A0425; A0429 ==

== ENCOUNTER 2023-11-13 08:00 | Emergency (ER) | payer MEDICARE ==
[2023-11-13] MEDS ORDERED: TETANUS/DIPHTHERIA/PERTUSSIS 0.5 ML SYRINGE IM ONE (08:15)
[2023-11-13 08:47] LABS: BASOPHILS % (AUTO) 0.3 %; EOSINOPHILS # (AUTO) 0.1 10^3/uL (0.0-0.7); EOSINOPHILS % (AUTO) 0.9 %; HCT - HEMATOCRIT 38.4 % (42.0-52.0); LYMPHOCYTES # (AUTO) 0.3 10^3/uL (1.5-3.5); LYMPHOCYTES % (AUTO) 2.6 %; MEAN CORPUSCULAR HEMOGLOBIN 27.2 pg (27.0-31.0); MEAN CORPUSCULAR HGB CONC 31.3 g/dL (32.0-36.0); MEAN CORPUSCULAR VOLUME 87.1 fL (80.0-94.0); MEAN PLATELET VOLUME 8.5 fL (7.4-11.4); MONOCYTES # (AUTO) 0.3 10^3/uL (0.0-1.0); MONOCYTES % (AUTO) 2.7 %; NEUTROPHILS # (AUTO) 11.8 10^3/uL (1.5-6.6); PLT - PLATELET COUNT 436 10^3/uL (130-450); RED BLOOD COUNT 4.41 10^6/uL (4.70-6.10); RED CELL DISTRIBUTION WIDTH 14.2 % (12.0-15.0); WHITE BLOOD COUNT 12.7 x10^3/uL (4.8-10.8)
--- NOTE | 2023-11-13 08:56 | CT Report ---
PROCEDURE: Head WO INDICATIONS: AMS TECHNIQUE: Noncontrast 4.5 mm thick angled axial sections acquired from the foramen magnum to the vertex. For r adiation dose reduction, the following was used: automated exposure control, adjustment of mA and/or kV according to patient size. COMPARISON: None. FINDINGS: Image quality: Diagnostic. Patient motion is noted. CSF spaces: Basal cisterns are patent. No extra -axial fluid collections. Ventricles are normal in size and shape. Brain: No midline shift. No intracranial masses or hemorrhage. Garrett-white matter interface is norm al. Skull and face: Calvarium and visualized facial bones are intact, without suspicious lesions. Sinuses: Visualized sinuses and mastoids are clear. IMPRESSION: No gross acute intracranial pathology. Reviewed by: Sameer Elias MD on 11/13/2023 8:54 AM [facility] Approved by: Sameer Elias MD on 11/13/2023 8:54 AM [facility] Station ID: [id number]
--- NOTE | 2023-11-13 08:58 | XRAY Report ---
PROCEDURE: Elbow 3+V LT INDICATIONS: fall TECHNIQUE: 3 views of the elbow were acquired. COMPARISON: None. FINDINGS: Bones: Acute fracture involving radial head is seen with fracture line extending to its articulation with capitellum and minimal lateral displacement at fracture site. Osteophytic changes are noted in wrist joints. No suspicious bony lesions. Soft tissues: Moderate effusion. No suspicious soft tissue calcifications or masses. IMPRESSION: Acute slightly displaced intra-articular fracture of radial head with moderate joint effusion. Reviewed by: Sameer Elias MD on 11/13/2023 8:56 AM PST Approved by: Sameer Elias MD on 11/13/2023 8:56 AM PST Station ID: [id number]
--- NOTE | 2023-11-13 08:58 | XRAY Report ---
PROCEDURE: Chest 1V INDICATIONS: AMS/fall TECHNIQUE: One view of the chest was acquired. COMPARISON: None. FINDINGS: Surgical changes and devices: Possible cord stimulator lead is seen projecting in mid thoracic spine . Postsurgical changes are noted in right shoulder. Lungs and pleura: No pleural effusions or pneumothorax. Lungs are clear. Mediastinum: Mediastinal contours appear normal. Heart size is normal. Bones and chest wall: No suspicious bony lesions. Overlying soft tissues appear unremarkable. IMPRESSION: No acute cardiopulmonary process. Reviewed by: Sameer Elias MD on 11/13/2023 8:57 AM PST Approved by: Sameer Elias MD on 11/13/2023 8:57 AM PST Station ID: [id number]
--- NOTE | 2023-11-13 09:00 | ED Physician Documentation ---
History of Present Illness - Stated complaint Stated Complaint: GLF - Chief complaint Chief Complaint: General - History obtained from History obtained from: Patient - Additonal information Additional information: Patient is a 73-year-old male presenting for evaluation of generalized weakness and fall from his bed that occurred overnight. Patient states that he was trying to get out of bed to go to the bathroom when he fell. Is unsure of what made him fall but does report feeling weak. He was unable to get himself up off the ground. His daughter came over this morning and found him crawling around. He is unsure how long he was on the ground. Patient denies hitting his head. He is not on a blood thinner. He did sustain skin tears to the left elbow. Patient denies recently being ill.Reports pain all over. Review of Systems Constitutional: denies: Fever Cardiac: denies: Chest pain / pressure Respiratory: denies: Dyspnea GI: denies: Vomiting : reports: Dysuria Neurologic: reports: Generalized weakness PD PAST MEDICAL HISTORY - Past Medical History Cardiovascular: None Respiratory: COPD Endocrine/Autoimmune: Type 2 diabetes GI: None : None HEENT: None Psych: None Musculoskeletal: Osteoarthritis, Chronic back pain Derm: None - Past Surgical History Past Surgical History: Yes Ortho: Rotator cuff repair HEENT: Tonsil/Adenoidectomy - Present Medications Home Medications: Ambulatory Orders Medication Instructions Recorded Confirmed Aspirin 81 mg DAILY 12/15/16 12/15/16 Gabapentin 600 mg QID 12/15/16 11/13/23 Methadone [Methadone Hcl] 10 mg PO BID 12/15/16 11/13/23 lisinopriL [Lisinopril] 10 mg DAILY 12/15/16 11/13/23 Albuterol Sulfate [Proair Hfa 1 - 2 puffs INH Q4H PRN #1 inhaler 12/20/16 Inhaler] Fluticasone/Salmeterol [Advair 1 each IH BID #1 blst.w.dev 12/20/16 250-50 Diskus] HYDROcod/ACETAM 5/325 [[place] 5/325] 1 tab PO Q4HR PRN #30 tablet 12/20/16 Ibuprofen [Motrin] 400 mg PO Q4HR PRN #0 tablet 12/20/16 Insulin Glargine [Lantus] 22 units SQ QPM #0 12/20/16 11/13/23 Levalbuterol Tartrate [Xopenex Hfa] 15 gm IH Q4HR PRN #1 hfa.aer.ad 12/20/16 Meloxicam 15 mg PO DAILY #0 12/20/16 12/15/16 levoFLOXacin [Levaquin] 750 mg PO DAILY #1 tablet 12/20/16 metFORMIN [Glucophage] 1,000 mg PO BID #0 12/20/16 11/13/23 - Allergies Allergies/Adverse Reactions: Allergies Allergy/AdvReac Type Severity Reaction Status Date / Time albuterol AdvReac Mild Unknown Verified 11/13/23 08:15 - Social History Does the pt smoke?: No Smoking Status: Never smoker PD ED PE NORMAL - General General: No acute distress, Well developed/nourished, Other (Disheveled). No: Alert and oriented X 3 (Alert and oriented to person place and situation but not to month or year) - HEENT HEENT: PERRL, EOMI, Moist mucous membranes, Pharynx benign, Other (Scabbed wound to left judaism which patient states is chronic) - Neck Neck: Supple, no meningeal sign, No bony TTP - Cardiac Cardiac: Other (Tachycardic, regular rhythm) - Respiratory Respiratory: No respiratory distress, Clear bilaterally - Abdomen Abdomen: Normal bowel sounds, Soft, Non tender, Non distended - Derm Derm: Other (Erythema to lower abdominal skin folds; multiple skin tears to L arm) - Extremities Extremities: Other (Skin tears to left forearm, bruising to both forearms, normal range of motion at L elbow) - Neuro Neuro: administrator pesticide 2-12 intact, No motor deficit, Normal speech. No: Alert and oriented X 3 (Alert and oriented to person place and situation) Eye Opening: Spontaneous Motor: Obeys Commands Verbal: Confused GCS Score: 14 Results - Vitals Vitals: Vital Signs - 24 hr 11/13/23 11/13/23 11/13/23 08:15 09:47 11:06 Temperature 37.7 C Heart Rate 110 H 110 H 101 H Respiratory 22 20 20 Rate Blood Pressure 138/92 H 139/96 H 121/58 L O2 Saturation 100 91 L 98 If not protocol 2 : Oxygen Flow, liters/minute 02/05/24 02/05/24 02/05/24 12:51 14:59 17:18 Temperature 36.9 C 36.6 C Heart Rate 101 H 89 88 Respiratory 17 16 18 Rate Blood Pressure 105/63 143/85 H 119/81 H O2 Saturation 97 95 97 If not protocol 2 2 : Oxygen Flow, liters/minute Oxygen O2 Source Nasal cannula - EKG (time done) 0837 EKG releavant findings:: EKG personally interpreted by author of this note. Relevant findings are: Rate 111, sinus tachycardia, right bundle branch block, no STEMI, QTc 520 - Labs Labs: Laboratory Tests 11/13/23 11/13/23 11/13/23 08:33 08:42 08:42 WBC 12.7 H RBC 4.41 L Hgb 12.0 L Hct 38.4 L MCV 87.1 MCH 27.2 MCHC 31.3 L RDW 14.2 Plt Count 436 MPV 8.5 Neut # (Auto) 11.8 H Lymph # (Auto) 0.3 L [place] # (Auto) 0.3 Eos # (Auto) 0.1 Baso # (Auto) 0.0 Absolute Nucleated RBC 0.00 Nucleated RBC % 0.0 Sodium 134 L Potassium 5.2 H Chloride 97 L Carbon Dioxide 28 Anion Gap 9.0 BUN 41 H Creatinine 1.1 Estimated GFR (MDRD) 66 L Glucose 120 H POC Whole Bld Glucose Lactic Acid Calcium 8.9 Total Bilirubin 0.8 AST 15 ALT 7 L Alkaline Phosphatase 90 Total Creatine Kinase 185 Troponin I High Sens 25.3 H* Total Protein 6.7 Albumin 3.0 L Globulin 3.7 Albumin/Globulin Ratio 0.8 L Lipase < 10 L Urine Color Urine Clarity Urine pH Ur Specific [place] Urine Protein Urine Glucose (UA) Urine Ketones Urine Occult Blood Urine Nitrite Urine Bilirubin Urine Urobilinogen Ur Leukocyte Esterase Urine RBC Urine WBC Ur Squamous Epith Cells Urine Bacteria Ur Microscopic Review Urine Culture Comments Nasal Adenovirus (PCR) NOT DETECTED Nasal B. parapertussis DNA (PCR) NOT DETECTED Nasal Coronavir 229E PCR NOT DETECTED Nasal Coronavir HKU1 PCR NOT DETECTED Nasal Coronavir NL63 PCR NOT DETECTED Nasal Coronavir OC43 PCR NOT DETECTED Nasal Enterovir/Rhinovir PCR NOT DETECTED Nasal Influenza B PCR NOT DETECTED Nasal Influenza A PCR NOT DETECTED Nasal Parainfluen 1 PCR NOT DETECTED Nasal Parainfluen 2 PCR NOT DETECTED Nasal Parainfluen 3 PCR NOT DETECTED Nasal Parainfluen 4 PCR NOT DETECTED Nasal RSV (PCR) NOT DETECTED Nasal B.pertussis DNA PCR NOT DETECTED Nasal C.pneumoniae (PCR) NOT DETECTED [place] Human Metapneumo PCR NOT DETECTED Nasal M.pneumoniae (PCR) NOT DETECTED Nasal SARS-CoV-2 (PCR) NOT DETECTED 11/13/23 11/13/23 11/13/23 09:43 09:43 10:38 WBC RBC Hgb Hct MCV MCH MCHC RDW Plt Count MPV Neut # (Auto) Lymph # (Auto) [place] # (Auto) Eos # (Auto) Baso # (Auto) Absolute Nucleated RBC Nucleated RBC % Sodium Potassium Chloride Carbon Dioxide Anion Gap BUN Creatinine Estimated GFR (MDRD) Glucose POC Whole Bld Glucose Lactic Acid 1.7 Calcium Total Bilirubin AST ALT Alkaline Phosphatase Total Creatine Kinase Troponin I High Sens 25.8 H* Total Protein Albumin Globulin Albumin/Globulin Ratio Lipase Urine Color YELLOW Urine Clarity TURBID Urine pH 7.0 Ur Specific [place] 1.020 Urine Protein 30 H Urine Glucose (UA) NEGATIVE Urine Ketones NEGATIVE Urine Occult Blood LARGE H Urine Nitrite NEGATIVE Urine Bilirubin NEGATIVE Urine Urobilinogen 0.2 (NORMAL) Ur Leukocyte Esterase LARGE H Urine RBC 0-5 Urine WBC >25 H Ur Squamous Epith Cells NONE SEEN Urine Bacteria Moderate H Ur Microscopic Review INDICATED Urine Culture Comments INDICATED Nasal Adenovirus (PCR) Nasal B. parapertussis DNA (PCR) Nasal Coronavir 229E PCR Nasal Coronavir HKU1 PCR Nasal Coronavir NL63 PCR Nasal Coronavir OC43 PCR Nasal Enterovir/Rhinovir PCR Nasal Influenza B PCR Nasal Influenza A PCR Nasal Parainfluen 1 PCR Nasal Parainfluen 2 PCR Nasal Parainfluen 3 PCR Nasal Parainfluen 4 PCR Nasal RSV (PCR) Nasal B.pertussis DNA PCR Nasal C.pneumoniae (PCR) [place] Human Metapneumo PCR Nasal M.pneumoniae (PCR) Nasal SARS-CoV-2 (PCR) 11/13/23 11/13/23 14:15 16:43 WBC RBC Hgb Hct MCV MCH MCHC RDW Plt Count MPV Neut # (Auto) Lymph # (Auto) [place] # (Auto) Eos # (Auto) Baso # (Auto) Absolute Nucleated RBC Nucleated RBC % Sodium 134 L Potassium 5.0 H Chloride 99 L Carbon Dioxide 29 Anion Gap 6.0 BUN 33 H Creatinine 0.9 Estimated GFR (MDRD) 83 L Glucose 123 H POC Whole Bld Glucose 111 H Lactic Acid Calcium 8.6 Total Bilirubin AST ALT Alkaline Phosphatase Total Creatine Kinase Troponin I High Sens Total Protein Albumin Globulin Albumin/Globulin Ratio Lipase Urine Color Urine Clarity Urine pH Ur Specific [place] Urine Protein Urine Glucose (UA) Urine Ketones Urine Occult Blood Urine Nitrite Urine Bilirubin Urine Urobilinogen Ur Leukocyte Esterase Urine RBC Urine WBC Ur Squamous Epith Cells Urine Bacteria Ur Microscopic Review Urine Culture Comments Nasal Adenovirus (PCR) Nasal B. parapertussis DNA (PCR) Nasal Coronavir 229E PCR Nasal Coronavir HKU1 PCR Nasal Coronavir NL63 PCR Nasal Coronavir OC43 PCR Nasal Enterovir/Rhinovir PCR Nasal Influenza B PCR Nasal Influenza A PCR Nasal Parainfluen 1 PCR Nasal Parainfluen 2 PCR Nasal Parainfluen 3 PCR Nasal Parainfluen 4 PCR Nasal RSV (PCR) Nasal B.pertussis DNA PCR Nasal C.pneumoniae (PCR) [place] Human Metapneumo PCR Nasal M.pneumoniae (PCR) Nasal SARS-CoV-2 (PCR) PD Medical Decision Making - ED course Complexity details: reviewed results, re-evaluated patient, d/w patient, d/w family ED course: Pt presenting for evaluation of generalized weakness and fall from bed overnight. Unclear whether he had a head injury. Initially appeared confused which daughter states is chronic for him. Bruising to both forearm and skin tears to L arm. Not on a blood thinner. Tachycardic but otherwise stable VS. CT head, chest XR, L elbow XR, labs including lactic, CBC, chemistries, troponin, BC X 2, UA obtained and reviewed. Mild leukocytosis. K 5.2. (5.0 after IV fluids and lokelma). Troponins x2 are unchanged and around 25. No complaints here other than general weakness. L radial head fx on XR. Pt has good ROM of L elbow, sling placed. UA concerning for infection - started on antibiotics. CT A/P without signs of stone or obstruction. No abdominal tenderness. Chest XR negative for pneumonia. Pt has been declining for some time and often not caring for himself including not showering and sitting in his own urine for longs periods of time. Significant erythema to skin folds - nystatin ordered. Pt is too weak to go home and at this time does not meet criteria for admission. SW consult placed and pt remains boarding in the ER. Pt signed out at shift change. Departure - Departure Clinical Impression: Generalized weakness, Left radial head fracture, UTI (urinary tract infection), Hyperkalemia, Unable to care for self Condition: Fair Forms: PCP List
[2023-11-13 09:06] LABS: ALBUMIN/GLOBULIN RATIO 0.8 (1.0-2.2); ALKALINE PHOSPHATASE 90 IU/L (42-121); ALT ALANINE AMINOTRANSFERASE 7 IU/L (10-60); AST ASPARTATE AMINOTRANSFERASE 15 IU/L (10-42); BILIRUBIN,TOTAL 0.8 mg/dL (0.2-1.0); BUN - BLOOD UREA NITROGEN 41 mg/dL (6-20); CALCIUM 8.9 mg/dL (8.5-10.3); CARBON DIOXIDE - CO2 28 mmol/L (21-32); CHLORIDE 97 mmol/L (101-111); CK- CREATINE KINASE 185 IU/L (30-223); CREATININE 1.1 mg/dL (0.6-1.3); GFR - MDRD 66 (>89); GLUCOSE 120 mg/dL (74-104); LIPASE < 10 U/L (11-82); POTASSIUM 5.2 mmol/L (3.5-4.5); SODIUM 134 mmol/L (135-145); TOTAL PROTEIN 6.7 g/dL (6.4-8.9)
[2023-11-13 09:19] LABS: TROPONIN I HIGH SENSITIVITY 25.3 ng/L (2.3-19.7)
[2023-11-13 09:31] LABS: B. PARAPERTUSSIS- RESP PCR PAN NOT DETECTED; B. PERTUSSIS- RESP PCR PANEL NOT DETECTED; C. PNEUMONIAE- RESP PCR PANEL NOT DETECTED; CORONAVIRUS 229E-RESP PCR NOT DETECTED; CORONAVIRUS HKU1-RESP PCR NOT DETECTED; CORONAVIRUS NL63-RESP PCR NOT DETECTED; CORONAVIRUS OC43-RESP PCR NOT DETECTED; HUMAN METAPNEUMOVIRUS NOT DETECTED; INFLUENZA A- RESP PCR PANEL NOT DETECTED; INFLUENZA B - RESP PCR PANEL NOT DETECTED; M. PNEUMONIAE- RESP PCR PANEL NOT DETECTED; PARAINFLUENZA VIRUS 1 NOT DETECTED; PARAINFLUENZA VIRUS 2 NOT DETECTED; PARAINFLUENZA VIRUS 3 NOT DETECTED; PARAINFLUENZA VIRUS 4 NOT DETECTED; RHINOVIRUS/ENTEROVIRUS NOT DETECTED; RSV- RESP PCR PANEL NOT DETECTED; SARS-CoV-2 -RESP PCR PANEL NOT DETECTED
[2023-11-13] MEDS: TETANUS/DIPHTHERIA/PERTUSSIS 0.5 ML SYRINGE IM ONE (09:51)
[2023-11-13] MEDS: SODIUM ZIRCONIUM CYCLOSILICATE 5 GM PACKET PO STA (09:52)
[2023-11-13] MEDS: NYSTATIN POWDER 15 GM TOP STA (09:52)
[2023-11-13] MEDS: SODIUM CHLORIDE 0.9% 1,000 ML IV STA ×2 (09:52→15:07)
[2023-11-13 10:49] LABS: BILIRUBIN,URINE NEGATIVE (NEGATIVE); GLUCOSE, URINE (UA) NEGATIVE (NEGATIVE); KETONES,URINE (UA) NEGATIVE (NEGATIVE); LEUKOCYTE ESTERASE, URINE LARGE (NEGATIVE); NITRITE,URINE NEGATIVE (NEGATIVE); OCCULT BLOOD,URINE LARGE (NEGATIVE); PROTEIN,URINE 30 mg/dL (NEGATIVE); UROBILINOGEN,URINE 0.2 (NORMAL) E.U./dL (NORMAL)
[2023-11-13 10:51] LABS: CLARITY,URINE TURBID (CLEAR)
[2023-11-13 11:19] LABS: BACTERIA,URINE Moderate /HPF (None Seen); RBC,URINE 0-5 /HPF (0-5); SQUAMOUS EPITHELIAL CELL,UR NONE SEEN (<= Few); WBC,URINE >25 /HPF (0-3)
[2023-11-13] MEDS: cefTRIAXone 1 GM in SODIUM CHLORIDE 0.9% MINIBAG 100 ML IV STA (11:42)
[2023-11-13 14:41] LABS: CALCIUM 8.6 mg/dL (8.5-10.3); CREATININE 0.9 mg/dL (0.6-1.3)
--- NOTE | 2023-11-13 15:39 | CT Report ---
PROCEDURE: Abdomen/Pelvis WO INDICATIONS: UTI/weakness TECHNIQUE: A CT scan of the abdomen and pelvis was performed without the use of intravenous contrast. Images we re recorded and evaluated at appropriate window settings. Reformats: coronal and sagittal. For radiat ion dose reduction, the following was used: automated exposure control, adjustment of mA and/or kV ac cording to patient size. COMPARISON: None. FINDINGS: Image quality: Diagnostic. Lower chest: Mild subsegmental atelectasis. Liver: No contour-deforming mass. Gallbladder and biliary tree: Gallbladder is distended. No radiodense stones, gallbladder wall thicke jillian or pericholecystic fluid. Spleen: No splenomegaly. Pancreas: No pancreatic ductal dilation. Adrenals: No adrenal nodule. Kidneys and ureters: No hydronephrosis. No renal cystic lesion which requires follow up. No solid mas s. Stomach, bowel and peritoneum: No bowel distension. No pathologic free fluid. Lymph nodes: No central or retroperitoneal adenopathy. Vessels: No infrarenal aortic aneurysm. PELVIS Reproductive organs: Unremarkable. Bladder: No wall thickness, accounting for underdistention. Pelvic lymph nodes: No pelvic adenopathy by size criteria. Bones: Severe left hip degeneration with near complete [id number] apposition. No acute osseous abno rmality. Moderate degenerative changes of the visualized spine. Other: Fat-containing periumbilical hernia. No or inguinal hernia. Spinal stimulator in place. IMPRESSION: No acute findings in the abdomen or pelvis to explain patient's symptoms on this noncontrast exam. Reviewed by: Aurelia Gonzalez MD on 11/13/2023 3:38 PM PST Approved by: Aurelia Gonzalez MD on 11/13/2023 3:38 PM PST Station ID: [id number]
[2023-11-13] MEDS ORDERED: ACETAMINOPHEN 500 MG TABLET PO PRN (16:17)
[2023-11-13] MEDS ORDERED: ONDANSETRON 4 MG/2 ML VIAL IVP PRN (16:17)
[2023-11-13] MEDS ORDERED: GABAPENTIN 400 MG CAPSULE PO SCH (17:00)
[2023-11-13] MEDS: GABAPENTIN 300 MG CAPSULE PO SCH (17:13)
[2023-11-13] MEDS: metFORMIN 500 MG TABLET PO SCH (17:14)
[2023-11-13] MEDS: METHADONE 5 MG TABLET PO SCH (21:28)
[2023-11-13] MEDS: ATORVASTATIN 40 MG TABLET PO SCH (21:28)
[2023-11-13] MEDS: INSULIN GLARGINE-YFGN 300 UNIT/3 ML PEN SUBQ SCH (21:30)
--- NOTE | 2023-11-13 23:36 | ED Physician Documentation ---
ED Addendum - Addendum Addendum: 11/13/23 23:36 No change during my shift. Patient signed out to Dr. Navas.
[2023-11-14 05:00] LABS: BASOPHILS % (AUTO) 0.4 %; EOSINOPHILS % (AUTO) 0.2 %; HCT - HEMATOCRIT 34.3 % (42.0-52.0); HGB - HEMOGLOBIN 10.9 g/dL (14.0-18.0); LYMPHOCYTES % (AUTO) 10.2 %; MEAN CORPUSCULAR HEMOGLOBIN 27.4 pg (27.0-31.0); MEAN CORPUSCULAR HGB CONC 31.8 g/dL (32.0-36.0); MEAN CORPUSCULAR VOLUME 86.2 fL (80.0-94.0); MEAN PLATELET VOLUME 8.7 fL (7.4-11.4); MONOCYTES # (AUTO) 0.3 10^3/uL (0.0-1.0); MONOCYTES % (AUTO) 3.5 %; NEUTROPHILS # (AUTO) 8.1 10^3/uL (1.5-6.6); NEUTROPHILS % (AUTO) 85.3 %; PLT - PLATELET COUNT 365 10^3/uL (130-450); RED BLOOD COUNT 3.98 10^6/uL (4.70-6.10); RED CELL DISTRIBUTION WIDTH 14.3 % (12.0-15.0); WHITE BLOOD COUNT 9.5 x10^3/uL (4.8-10.8)
[2023-11-14 05:11] LABS: CALCIUM 8.3 mg/dL (8.5-10.3); CREATININE 0.7 mg/dL (0.6-1.3); POTASSIUM 4.5 mmol/L (3.5-4.5)
[2023-11-14] MEDS ORDERED: cefTRIAXone 1 GM VIAL ONE (09:48)
--- NOTE | 2023-11-14 09:48 | ED Physician Documentation ---
ED Addendum - Addendum Addendum: 11/14/23 Patient care assumed at signout. Patient knows awaiting PT and OT evaluation along with recommendations from social work. Patient has been having difficulty in caring for himself at home and had a fall yesterday. He has a left radial head fracture. He was noted to have hyperkalemia yesterday which was treated with IV fluids, Lokelma and his usual insulin. Repeat labs today show a normal potassium. White count has also normalized. No growth yet on blood cultures.He remains on IV antibiotics for UTI but could transition this to oral. He reports feeling fine this morning with well-controlled pain. He has been eating. He understands the plan for evaluation with PT and OT and social work. PT/OT have recommended SNF which pt is agreeable to and SW is working on placement. 11/14/23 19:00 Pt signed out at shift change.
[2023-11-14] MEDS: PANTOPRAZOLE 40 MG TABLET PO SCH (09:54)
[2023-11-14] MEDS: lisinopriL 5 MG TABLET PO SCH (09:56)
[2023-11-14] MEDS: NYSTATIN CREAM 15 GM TUBE TOP SCH (09:56)
[2023-11-14] MEDS: BACITRACIN ZINC OINT 1 PACKET TOP SCH (10:06)
[2023-11-14] MEDS: cefTRIAXone 1 GM in SODIUM CHLORIDE 0.9% MINIBAG 100 ML IV SCH (10:31)
--- NOTE | 2023-11-15 13:56 | ED Physician Documentation ---
ED Addendum - Addendum Addendum: 11/15/23 13:55 MEDICAL SERVICES MANAGER Agnes tells me he has been accepted to [facility] and will discharge tomorrow morning (11/16/2023) at 11 AM. I touched base by phone with [facility] and will send him a synopsis with current med list. His fax number is [phone]. Current medications include: gabapentin 600 mg p.o. 4 times daily Metformin 1000 mg p.o. twice daily Atorvastatin 40 mg p.o. daily Insulin glargine 22 units subcutaneous every evening Methadone 10 mg p.o. twice daily Pantoprazole 40 mg p.o. daily Ceftriaxone 1 g IV daily, he got the first dose on the sixth. This is for a pansensitive UTI with Proteus although noting it is resistant to Macrobid only. Probably could be changed to amoxicillin or Keflex. Lisinopril 10 mg p.o. daily Nystatin topically twice daily to a number of areas of topical yeast infection. Briefly this is a 73-year-old gentleman who has been doing poorly progressively over the last year. He was generally weak and fell out of bed and suffered a left radial head fracture and is in a sling for same. Chest x-ray on the day of admission and head CT on the day of admission were unremarkable. He did have a white count on admission of 12.7 which was better the next day and evidence of UTI. He was COVID-negative.
--- NOTE | 2023-11-16 01:10 | ED Physician Documentation ---
ED Addendum - Addendum Addendum: 11/16/23 01:09 Patient had pain overnight refractory to tylenol therefore 5mg oxycodone was ordered. plan to endorse to incoming daytime ED MD at 7am shift change.
[2023-11-16] MEDS: oxyCODONE 5 MG TABLET PO STA (01:15)
[2023-11-16 10:22] VITALS: BP 132/82; O2SAT 91
== END 2023-11-16 10:16 | disposition home or self-care (01) ==
LOC: EDUNIT# → ED 08:00
DX: S52.122A Displaced fracture of head of left radius, initial encounter for closed fracture (principal); S50.12XA Contusion of left forearm, initial encounter; S50.11XA Contusion of right forearm, initial encounter; W06.XXXA Fall from bed, initial encounter; Y92.003 Bedroom of unspecified non-institutional (private) residence as the place of occurrence of the external cause; N39.0 Urinary tract infection, site not specified; E87.5 Hyperkalemia; R53.1 Weakness; Z60.2 Problems related to living alone; Z23 Encounter for immunization; J44.9 Chronic obstructive pulmonary disease, unspecified; E11.9 Type 2 diabetes mellitus without complications; M19.90 Unspecified osteoarthritis, unspecified site; Z79.82 Long term (current) use of aspirin; Z79.4 Long term (current) use of insulin; Z79.84 Long term (current) use of oral hypoglycemic drugs; Z79.899 Other long term (current) drug therapy; Z11.52 Encounter for screening for COVID-19
CPT/HCPCS: 36415; 51701; 70450; 71045; 73080; 74176; 80048; 80053; 81001; 82550; 83605; 83690; 84484; 85025; 87040; 87077; 87086; 87181; 87633; 90471; 90715; 93005; 96365; 96366; 96368; 97162; 97166; 99284; A9270; J1815; 81003

== ENCOUNTER 2023-11-16 10:17 | Outpatient (CLI) | payer MEDICARE | END 2023-11-16 10:18 | disposition home or self-care (01) | LOC: EMS 10:17 | PROVIDERS: ATTEND Emergency Medicine | DX: R53.1 Weakness (principal); N39.0 Urinary tract infection, site not specified; R53.81 Other malaise; F03.90 Unspecified dementia, unspecified severity, without behavioral disturbance, psychotic disturbance, mood disturbance, and anxiety; S52.122A Displaced fracture of head of left radius, initial encounter for closed fracture; R41.0 Disorientation, unspecified; Z74.01 Bed confinement status | CPT/HCPCS: A0425; A0429 ==

== ENCOUNTER 2024-02-16 18:53 | Outpatient (CLI) | payer MEDICARE | END 2024-02-16 23:59 | disposition critical access hospital (66) | LOC: EMS 18:53 | DX: R41.0 Disorientation, unspecified (principal); R00.0 Tachycardia, unspecified; R05.9 Cough, unspecified; R06.82 Tachypnea, not elsewhere classified; L03.115 Cellulitis of right lower limb; L03.116 Cellulitis of left lower limb | CPT/HCPCS: A0425; A0427 ==

== ENCOUNTER 2024-02-16 19:15 | Emergency (ER) | payer MEDICARE ==
--- NOTE | 2024-02-16 19:39 | ED Physician Documentation ---
History of Present Illness - Stated complaint Stated Complaint: POSS SEPSIS, DEC LOC - Chief complaint Chief Complaint: Neuro - History obtained from History obtained from: Patient, EMS - Additonal information Additional information: 73yM with pmh dm, htn, frequent falls and deteriorating ADLs, discharged from SNF 8 days prior s/p hip replacement p/w AMS and fever starting today per family. Patient is AOX2 (person, place, not time) and denies pain anywhere, soa, rashes, or concerns. history limited by patient AMS. EMS is unsure when his hip replacement was. Patient desaturated on RA per ems to 89% RA. 1L NS provided en route by ems. PD PAST MEDICAL HISTORY - Past Medical History Past Medical History: Yes Cardiovascular: Other Respiratory: COPD Endocrine/Autoimmune: Type 2 diabetes GI: None : None HEENT: None Psych: None Musculoskeletal: Osteoarthritis, Chronic back pain Derm: None - Past Surgical History Past Surgical History: Yes Ortho: Hip replacement, Rotator cuff repair HEENT: Tonsil/Adenoidectomy - Present Medications Home Medications: Ambulatory Orders Medication Instructions Recorded Confirmed Aspirin 81 mg PO DAILY 12/15/16 02/16/24 Gabapentin 600 mg PO QID 12/15/16 02/16/24 Methadone [Methadone Hcl] 10 mg PO BID 12/15/16 02/16/24 lisinopriL [Lisinopril] 10 mg PO DAILY 12/15/16 02/16/24 Insulin Glargine [Lantus] 22 units SQ QPM #0 12/20/16 02/16/24 Meloxicam 15 mg PO DAILY #0 12/20/16 02/16/24 metFORMIN [Glucophage] 1,000 mg PO BID #0 12/20/16 02/16/24 Atorvastatin Calcium 40 mg PO HS 11/14/23 02/16/24 Fluconazole 100 mg PO UD 02/16/24 02/16/24 oxyCODONE [Roxicodone] 10 mg PO Q6H 02/16/24 02/16/24 - Allergies Allergies/Adverse Reactions: Allergies Allergy/AdvReac Type Severity Reaction Status Date / Time albuterol AdvReac Mild Unknown Verified 02/16/24 19:36 - Social History Does the pt smoke?: No Smoking Status: Never smoker Does the pt drink ETOH?: No Does the pt have substance abuse?: No PD ED PE NORMAL - Vitals Vital signs reviewed: Yes - General General: No acute distress, Other (AOX2, morbidly obese) - HEENT HEENT: Atraumatic, PERRL, EOMI, Ears normal, Moist mucous membranes, Pharynx benign - Neck Neck: Supple, no meningeal sign - Cardiac Cardiac: Other (tachycardic rate, regular rhythm) - Respiratory Respiratory: Other (mild increased wob. lung exam limited by large body habitus. distant lung sounds) - Abdomen Abdomen: Other (BL LQ ttp) - Derm Derm: Other (BL LE discoloration without active cellulitis. ) - Extremities Extremities: Other (BL LE 2+ pitting edema. csm intact BL LE) - Neuro Eye Opening: Spontaneous Motor: Obeys Commands Verbal: Confused GCS Score: 14 Results - Vitals Vitals: Vital Signs - 24 hr 02/16/24 02/16/24 02/16/24 19:26 19:45 19:46 Temperature 39.3 C H Heart Rate 118 H Respiratory 22 Rate Blood Pressure 149/109 H O2 Saturation 94 88 L 94 If not protocol 2 : Oxygen Flow, liters/minute 02/16/24 02/16/24 02/16/24 20:04 20:30 21:00 Temperature 37.7 C 37.7 C Heart Rate 120 H 120 H 120 H Respiratory 18 18 18 Rate Blood Pressure 143/78 H 151/100 H 117/100 H O2 Saturation 94 94 94 If not protocol 2 2 2 : Oxygen Flow, liters/minute 02/16/24 02/16/24 02/16/24 21:26 22:00 22:03 Temperature 38.9 C H 37.4 C Heart Rate 126 H 88 Respiratory 18 20 Rate Blood Pressure 103/44 L 122/88 H O2 Saturation 94 94 If not protocol 2 2 : Oxygen Flow, liters/minute 02/16/24 02/16/24 02/16/24 22:30 23:00 23:30 Temperature 37.4 C 36.7 C Heart Rate 130 H 126 H 121 H Respiratory 18 18 18 Rate Blood Pressure 97/58 L 103/52 L 105/55 L O2 Saturation 94 94 95 If not protocol 2 2 : Oxygen Flow, liters/minute 02/17/24 02/17/24 02/17/24 00:00 00:06 00:30 Temperature 36.2 C L Heart Rate 112 H 111 H Respiratory 18 18 Rate Blood Pressure 93/47 L 83/40 L O2 Saturation 94 93 If not protocol 2 : Oxygen Flow, liters/minute 02/17/24 02/17/24 01:00 01:20 Temperature 36.2 C L Heart Rate 110 H 104 H Respiratory 18 18 Rate Blood Pressure 86/39 L 96/54 L O2 Saturation 90 L 94 If not protocol 1 2 : Oxygen Flow, liters/minute Oxygen O2 Source Nasal cannula Oxygen Flow Rate 2 - EKG (time done) 1941 EKG releavant findings:: EKG personally interpreted by author of this note. Relevant findings are: Rate: Rate (enter#) (117) Rhythm: Sinus tachycardia Intervals: Normal MO QRS: Poor R wave progression Ischemia: Normal ST segments. No: ST elevation c/w ischemia - Labs Labs: Laboratory Tests 02/16/24 02/16/24 02/16/24 19:25 19:30 19:30 WBC 18.2 H RBC 4.61 L Hgb 12.9 L Hct 43.3 MCV 93.9 MCH 28.0 MCHC 29.8 L RDW 13.7 Plt Count 306 MPV 10.0 Neut # (Auto) 15.8 H Lymph # (Auto) 1.1 L Florence # (Auto) 1.0 Eos # (Auto) 0.1 Baso # (Auto) 0.0 Absolute Nucleated RBC 0.00 Nucleated RBC % 0.0 VBG pH VBG pCO2 VBG pO2 VBG HCO3 VBG Total CO2 VBG O2 Saturation VBG Base Excess Sodium 135 Potassium 5.0 H Chloride 99 L Carbon Dioxide 30 Anion Gap 6.0 BUN 27 H Creatinine 0.9 Estimated GFR (MDRD) 83 L Glucose 136 H Lactic Acid Calcium 9.7 Total Bilirubin 0.4 AST 10 ALT 8 L Alkaline Phosphatase 94 Total Protein 6.7 Albumin 3.9 Globulin 2.8 Albumin/Globulin Ratio 1.4 Urine Color Urine Clarity Urine pH Ur Specific [place] Urine Protein Urine Glucose (UA) Urine Ketones Urine Occult Blood Urine Nitrite Urine Bilirubin Urine Urobilinogen Ur Leukocyte Esterase Urine RBC Urine WBC Ur Squamous Epith Cells Urine Bacteria Urine Culture Comments Nasal Adenovirus (PCR) NOT DETECTED Nasal B. parapertussis DNA (PCR) NOT DETECTED Nasal Coronavir 229E PCR NOT DETECTED Nasal Coronavir HKU1 PCR NOT DETECTED Nasal Coronavir NL63 PCR NOT DETECTED Nasal Coronavir OC43 PCR NOT DETECTED Nasal Enterovir/Rhinovir PCR NOT DETECTED Nasal Influenza B PCR NOT DETECTED Nasal Influenza A PCR NOT DETECTED Nasal Parainfluen 1 PCR NOT DETECTED Nasal Parainfluen 2 PCR NOT DETECTED Nasal Parainfluen 3 PCR NOT DETECTED Nasal Parainfluen 4 PCR NOT DETECTED Nasal RSV (PCR) NOT DETECTED Nasal B.pertussis DNA PCR NOT DETECTED Nasal C.pneumoniae (PCR) NOT DETECTED Stanley Human Metapneumo PCR NOT DETECTED Nasal M.pneumoniae (PCR) NOT DETECTED Nasal SARS-CoV-2 (PCR) NOT DETECTED 02/16/24 02/16/24 02/16/24 19:30 19:30 19:52 WBC RBC Hgb Hct MCV MCH MCHC RDW Plt Count MPV Neut # (Auto) Lymph # (Auto) Florence # (Auto) Eos # (Auto) Baso # (Auto) Absolute Nucleated RBC Nucleated RBC % VBG pH 7.342 VBG pCO2 52.0 H VBG pO2 39.7 VBG HCO3 27.6 VBG Total CO2 29.1 H VBG O2 Saturation 56.0 L VBG Base Excess 0.9 Sodium Potassium Chloride Carbon Dioxide Anion Gap BUN Creatinine Estimated GFR (MDRD) Glucose Lactic Acid 1.5 Calcium Total Bilirubin AST ALT Alkaline Phosphatase Total Protein Albumin Globulin Albumin/Globulin Ratio Urine Color YELLOW Urine Clarity CLEAR Urine pH 7.5 Ur Specific [place] 1.015 Urine Protein NEGATIVE Urine Glucose (UA) 100 H Urine Ketones NEGATIVE Urine Occult Blood NEGATIVE Urine Nitrite NEGATIVE Urine Bilirubin NEGATIVE Urine Urobilinogen 0.2 (NORMAL) Ur Leukocyte Esterase NEGATIVE Urine RBC None Seen Urine WBC 0-3 Ur Squamous Epith Cells FEW Squamous Urine Bacteria None Seen Urine Culture Comments NOT INDICATED Nasal Adenovirus (PCR) Nasal B. parapertussis DNA (PCR) Nasal Coronavir 229E PCR Nasal Coronavir HKU1 PCR Nasal Coronavir NL63 PCR Nasal Coronavir OC43 PCR Nasal Enterovir/Rhinovir PCR Nasal Influenza B PCR Nasal Influenza A PCR Nasal Parainfluen 1 PCR Nasal Parainfluen 2 PCR Nasal Parainfluen 3 PCR Nasal Parainfluen 4 PCR Nasal RSV (PCR) Nasal B.pertussis DNA PCR Nasal C.pneumoniae (PCR) Stanley Human Metapneumo PCR Nasal M.pneumoniae (PCR) Nasal SARS-CoV-2 (PCR) PD Medical Decision Making - ED course ED course: 73yM presents as sepsis alert with AMS and fever X 1 day. suspect respiratory so urce for infection given low o2 sats, improving on 2L nasal cannula. rvp, cxr ordered. He does have BL LQ abdominal pain on exam concerning for other infectious sites - appendicitis, diverticulitis, colitis. u/a obtained to eval for uti. we are unable to confirm date or location of his hip replacement but wound site infection is possibility therefore CT will evaluate this as well. Will f/u cbc, abdominal panel, lactic, vbg, blood cultures. Patient received 1L IVF by ems en route. 30cc/kg fluid bolus by ideal body weight ordered. Cefepime/vanc empiric antibiotics ordered. Patient has gallbladder enlargement with possible stone on ct. u/s ordered and confirms GB wall thickening, hydrops, and enlarged CBD. Flagyl added on for anaerobic coverage. Decision made to transfer at 22:30. [facility] initially accepted in transfer but we did not hear back for several hours. Patient's blood pressure is downtrending while he is asleep with MAP<60 then improved when he is roused. additional IVF bolus hung and transfer center was updated. Transfer center then connected me with [facility] surgeon Dr. Horne who recommended ed-ed transfer. 01:48 - D/w Dr. Russell, ED physician at [facility] who accepts in transfer. - Critical Care Time(min): 90 Time Includes: Direct patient care, Review records, Reassess patient, Document care, Coordinate care, Medical consult, Family consult for vt sep Data interpretation: Labs, Pulse ox, CXR Departure - Departure Disposition: 02 Transfer Acute Care Hosp Clinical Impression: Sepsis, AMS (altered mental status) Condition: Fair Forms: PCP List
[2024-02-16 19:41] LABS: BASOPHILS % (AUTO) 0.2 %; EOSINOPHILS # (AUTO) 0.1 10^3/uL (0.0-0.7); EOSINOPHILS % (AUTO) 0.5 %; HCT - HEMATOCRIT 43.3 % (42.0-52.0); HGB - HEMOGLOBIN 12.9 g/dL (14.0-18.0); LYMPHOCYTES # (AUTO) 1.1 10^3/uL (1.5-3.5); LYMPHOCYTES % (AUTO) 6.3 %; MEAN CORPUSCULAR HGB CONC 29.8 g/dL (32.0-36.0); MEAN CORPUSCULAR VOLUME 93.9 fL (80.0-94.0); MONOCYTES % (AUTO) 5.6 %; NEUTROPHILS # (AUTO) 15.8 10^3/uL (1.5-6.6); PLT - PLATELET COUNT 306 10^3/uL (130-450); RED BLOOD COUNT 4.61 10^6/uL (4.70-6.10); RED CELL DISTRIBUTION WIDTH 13.7 % (12.0-15.0); WHITE BLOOD COUNT 18.2 x10^3/uL (4.8-10.8)
[2024-02-16 19:53] LABS: VBG BASE EXCESS 0.9 mmol/L (-2 - +2); VBG HCO3 27.6 mmol/L (23-28); VBG PH 7.342 (7.31-7.41); VBG PO2 39.7 mmHg (25-47); VBG TOTAL CO2 29.1 mmol/L (24-29)
[2024-02-16 19:57] LABS: ALBUMIN 3.9 g/dL (3.2-5.5); ALBUMIN/GLOBULIN RATIO 1.4 (1.0-2.2); BILIRUBIN,TOTAL 0.4 mg/dL (0.2-1.0); CALCIUM 9.7 mg/dL (8.5-10.3); CREATININE 0.9 mg/dL (0.6-1.3); TOTAL PROTEIN 6.7 g/dL (6.4-8.9)
[2024-02-16] MEDS: SODIUM CHLORIDE 0.9% 1,500 ML IV STA (20:00)
[2024-02-16] MEDS ORDERED: VANCOMYCIN 1 GM VIAL ONE (20:01)
[2024-02-16] MEDS: VANCOMYCIN INJ 2 GM in SODIUM CHLORIDE 0.9% 500 ML IV STA (20:09)
[2024-02-16] MEDS: CEFEPIME 2 GM in SODIUM CHLORIDE 0.9% MINIBAG 100 ML IV STA (20:09)
[2024-02-16 20:13] LABS: BILIRUBIN,URINE NEGATIVE (NEGATIVE); GLUCOSE, URINE (UA) 100 mg/dL (NEGATIVE); KETONES,URINE (UA) NEGATIVE (NEGATIVE); LEUKOCYTE ESTERASE, URINE NEGATIVE (NEGATIVE); NITRITE,URINE NEGATIVE (NEGATIVE); OCCULT BLOOD,URINE NEGATIVE (NEGATIVE); PH,URINE 7.5 PH (5.0-7.5); PROTEIN,URINE NEGATIVE (NEGATIVE); UROBILINOGEN,URINE 0.2 (NORMAL) E.U./dL (NORMAL)
[2024-02-16 20:24] LABS: BACTERIA,URINE None Seen /HPF (None Seen); CLARITY,URINE CLEAR (CLEAR); RBC,URINE None Seen /HPF (0-5); SQUAMOUS EPITHELIAL CELL,UR FEW Squamous (<= Few); WBC,URINE 0-3 /HPF (0-3)
[2024-02-16] MEDS ORDERED: iohexoL-300 100 ML VIAL ONE (20:24)
[2024-02-16 21:03] LABS: B. PARAPERTUSSIS- RESP PCR PAN NOT DETECTED; B. PERTUSSIS- RESP PCR PANEL NOT DETECTED; C. PNEUMONIAE- RESP PCR PANEL NOT DETECTED; CORONAVIRUS 229E-RESP PCR NOT DETECTED; CORONAVIRUS HKU1-RESP PCR NOT DETECTED; CORONAVIRUS NL63-RESP PCR NOT DETECTED; CORONAVIRUS OC43-RESP PCR NOT DETECTED; HUMAN METAPNEUMOVIRUS NOT DETECTED; INFLUENZA A- RESP PCR PANEL NOT DETECTED; INFLUENZA B - RESP PCR PANEL NOT DETECTED; M. PNEUMONIAE- RESP PCR PANEL NOT DETECTED; PARAINFLUENZA VIRUS 1 NOT DETECTED; PARAINFLUENZA VIRUS 2 NOT DETECTED; PARAINFLUENZA VIRUS 3 NOT DETECTED; PARAINFLUENZA VIRUS 4 NOT DETECTED; RHINOVIRUS/ENTEROVIRUS NOT DETECTED; RSV- RESP PCR PANEL NOT DETECTED; SARS-CoV-2 -RESP PCR PANEL NOT DETECTED
[2024-02-16] MEDS: iohexoL-300 100 ML VIAL IVP ONE (21:23)
[2024-02-16] MEDS: ACETAMINOPHEN 325 MG TABLET PO STA (21:33)
--- NOTE | 2024-02-16 21:37 | XRAY Report ---
PROCEDURE: Chest 1V INDICATIONS: Sepsis TECHNIQUE: One view of the chest was acquired. COMPARISON: None. FINDINGS: Surgical changes and devices: Spinal stimulator lead projects over the midthoracic vertebrae. Lungs and pleura: Diffuse interstitial opacities. Mild bronchial cuffing. Mediastinum: Mediastinal contours appear normal. Heart size is mildly enlarged. Bones and chest wall: No suspicious bony lesions. Overlying soft tissues appear unremarkable. IMPRESSION: Diffuse interstitial opacities with mild bronchial cuffing, suggestive of mild pulmonary edema. Reviewed by: Isíaas Batres MD on 02/16/2024 9:36 PM PDT Approved by: Isaías Batres MD on 02/16/2024 9:36 PM PDT Station ID: [id number]
--- NOTE | 2024-02-16 21:42 | CT Report ---
PROCEDURE: Abdomen/Pelvis W INDICATIONS: BL Lower abdomen tender-sepsis, AMS,recent hip srg CONTRAST: 100 ML OMNI 300 TECHNIQUE: After the administration of intravenous contrast, a CT scan of the abdomen and pelvis was performed. Images were recorded and evaluated at appropriate window settings. Reformats: coronal and sagittal. F or radiation dose reduction, the following was used: automated exposure control, adjustment of mA and /or kV according to patient size. COMPARISON: Same day chest x-ray. FINDINGS: Image quality: Suboptimal evaluation due to arm positioning, motion artifact and body habitus.. Lower chest: Unremarkable. Liver: No solid mass. Gallbladder: Gallbladder is distended, and contains sludge versus stones. Biliary tree: No intrahepatic or extrahepatic dilation, accounting for age. Spleen: No splenomegaly. Pancreas: No pancreatic ductal dilation. Adrenals: No adrenal nodule. Kidneys and ureters: No hydronephrosis. No renal cystic lesion which requires follow up. No solid mas s. Stomach, bowel and peritoneum: No gastric or small bowel dilation. No abnormal wall thickening. No pa thologic free fluid. Lymph nodes: No central or retroperitoneal adenopathy. Vessels: No infrarenal aortic aneurysm. Patent portal vein. PELVIS Reproductive organs: Unremarkable. Bladder: No abnormal wall thickening, accounting for underdistention. Pelvic lymph nodes: No pelvic adenopathy by size criteria. Bones: Left total hip arthroplasty. Small effusion and fluid surrounding the femoral implant. Spinal stimulator present. The leads terminate within the spinal canal posterior to the T8 and T9 vertebral bodies. Other: No significant ventral or inguinal hernia. IMPRESSION: The gallbladder is distended, with sludge versus stones. Early acute cholecystitis not excluded. Yumiko elate with right upper quadrant pain and consider ultrasound. Prior left hip arthroplasty, with small left effusion and a small fluid collection along the femoral stem, presumably postoperative fluid. Reviewed by: Isaías Batres MD on 02/16/2024 9:41 PM PDT Approved by: Isaías Batres MD on 02/16/2024 9:41 PM PDT Station ID: [id number]
--- NOTE | 2024-02-16 23:07 | Ultrasound Report ---
PROCEDURE: Abdomen Limited INDICATIONS: RUQ ultrasound - gallbladder sludge vs stones onct TECHNIQUE: Real-time focused scanning was performed of the abdomen, with image documentation. COMPARISONS: Same day CT. FINDINGS: Liver: Liver is normal in size and homogeneous in echotexture. Gallbladder: Cholelithiasis with focal wall thickening. Negative sonographic Lerma sign. Negative fo r pericholecystic fluid. Gallbladder hydrops. Biliary ducts: Intrahepatic bile ducts are non-dilated. Extrahepatic bile duct caliber measures 8 m m. Normal is 6-7 mm or less in diameter, or 10 mm or less post-cholecystectomy. IMPRESSION: Cholelithiasis with focal wall thickening and gallbladder hydrops, concerning for acute cholecystitis . Common bile duct measures 8 mm, slightly greater than expected for age. This is discordant with the a ppearance on comparison CT. Equivocal findings for choledocholithiasis. Consider MRCP. Reviewed by: Isaías Batres MD on 02/16/2024 11:05 PM PDT Approved by: Isaías Batres MD on 02/16/2024 11:05 PM PDT Station ID: [id number]
[2024-02-16] MEDS: IBUPROFEN 400 MG TABLET PO STA (23:36)
[2024-02-16] MEDS: metroNIDAZOLE 500 MG/100 ML 500 MG/100 ML BAG IV ONE (23:36)
[2024-02-17] MEDS: SODIUM CHLORIDE 0.9% 1,000 ML IV STA (01:18)
[2024-02-17 03:04] VITALS: BP 116/54; O2SAT 97
== END 2024-02-17 02:56 | disposition short-term general hospital (02) ==
LOC: EDUNIT# → ED 19:15
DX: A41.9 Sepsis, unspecified organism (principal); R41.82 Altered mental status, unspecified; I10 Essential (primary) hypertension; E11.9 Type 2 diabetes mellitus without complications; J44.9 Chronic obstructive pulmonary disease, unspecified; Z96.649 Presence of unspecified artificial hip joint; Z79.4 Long term (current) use of insulin; Z79.84 Long term (current) use of oral hypoglycemic drugs
CPT/HCPCS: 36415; 71045; 74177; 76705; 80053; 81001; 82803; 83605; 85025; 87040; 87633; 93005; 96365; 96366; 96367; 96368; 99285; A9270; J3370; Q9967; 87086